=== PATIENT | female | born 1960 | race Caucasian/White ===

== ENCOUNTER 2019-12-28 10:56 | Emergency (ER) | payer BC, SELFPAY ==
--- NOTE | 2019-12-28 10:53 | ECG_ITS ---
APPROVED REPORT Exam: Resting ECG HR:127 bpm ECG Measurements Heart Rate 127 AXES QRSd 70 QRS 51 QT 312 T 60 QTc 453 <Conclusion> Atrial fibrillation with rapid ventricular response Nonspecific ST and T wave abnormality, probably digitalis effect Abnormal ECG Electronically signed by : Henry Tan, 12/31/2019 17:16:58
[2019-12-28 10:57] VITALS: BP 178/111; PULSE 115; RESP 20; TEMP 36.5; O2SAT 100; BMI 36.6
--- NOTE | 2019-12-28 10:58 | XR_ITS ---
PROCEDURE: XR CHEST 2V CLINICAL HISTORY: new onset afib COMPARISON: No exams were available for comparison FINDINGS: The cardiomediastinal silhouette and pulmonary vascularity are within normal limits. Hiatal hernia noted. The lungs are clear without infiltrates, suspicious nodules, or pleural effusions. No acute bony abnormalities. IMPRESSION: Hiatal hernia otherwise negative Dictated by: Carson Lowe MD 12/28/2019 12:13 Electronically signed by Carson Lowe MD in [place] 12/28/2019 12:13
[2019-12-28 11:09] LABS: Basophils % 0.6 % (0.1-2.0); Eosinophils # 0.1 K/mm3 (0.0-0.4); Eosinophils % 2.2 % (0.1-12.0); Hemoglobin 14.8 g/dL (12.2-16.2); Lymphocytes # 1.7 K/mm3 (0.7-4.5); Lymphocytes % 28.9 % (10-50); Mean Corpuscular HGB Conc 33.6 g/dL (31.8-35.4); Mean Corpuscular Hemoglobin 30.5 pg (27.0-31.2); Mean Corpuscular Volume 90.8 fl (81-99); Mean Platelet Volume 8.5 fl (7.4-10.4); Monocytes # 0.3 K/mm3 (0.1-1.0); Monocytes % 5.4 % (1.7-9.3); Neutrophils # 3.7 K/mm3 (1.8-7.8); Neutrophils % 62.9 % (37.0-80.0); Platelet Count 271 K/mm3 (142-424); Red Blood Count 4.85 M/mm3 (4.20-5.40); Red Cell Distribution Width 13.1 % (11.5-17.5); White Blood Count 5.8 K/mm3 (4.8-10.8)
--- NOTE | 2019-12-28 11:10 | HMH.EDGENADL ---
ED Disposition Clinical Impression: Paroxysmal atrial fibrillation Disposition: Home, Self-Care Condition on Discharge: Good Instructions: DI for Atrial Fibrillation Additional Instructions: Stop taking propanolol. Start metoprolol and Eliquis. Follow-up with cardiology in the office in 1 week. Return to the emergency room if symptoms recur. Prescriptions: Apixaban [Eliquis 5mg Tablet] 5 mg PO BID #60 tab Transmission Status: Received by [facility] Metoprolol Succinate [Metoprolol Succinate 50mg Tablet*] 50 mg PO DAILY #30 tab Transmission Status: Received by [facility] Referrals: PCP,No [Primary Care Provider] - - Critical Care Critical Care Time: No Attestation: On 12/28/19, the high probability of a clinically significant, sudden or life threatening deterioration of the following system(s) required my full and direct attention, intervention and personal management. The time I documented below is in addition to time spent performing reported procedures but includes the following listed in this critical care notation. Medical Decision Making - Medical Records Medical records reviewed: Yes: I reviewed the patient's medical records. - Diogenes Inquiry Pt receiving controlled substance: No Vital Signs: 12/28/19 10:57 12/28/19 11:30 12/28/19 12:03 Temperature 97.7 F Temperature Source Oral Pulse Rate [Apical] 115 H 117 H 108 H Respiratory Rate 20 20 Blood Pressure [Right Arm] 178/111 H 159/101 H 159/99 H Blood Pressure Mean [Right Arm] 133 120 119 Blood Pressure Source [Right Arm] Automatic Cuff Automatic Cuff Automatic Cuff Blood Pressure Position [Right Arm] Sitting Sitting Sitting 02 Sat by Pulse Oximetry 100 100 98 Oxygen Delivery Method Room Air Room Air 12/28/19 13:05 Temperature Temperature Source Pulse Rate [Apical] 67 Respiratory Rate Blood Pressure [Right Arm] 156/95 H Blood Pressure Mean [Right Arm] 115 Blood Pressure Source [Right Arm] Automatic Cuff Blood Pressure Position [Right Arm] Sitting 02 Sat by Pulse Oximetry 95 Oxygen Delivery Method Room Air - Lab Data Lab results reviewed: Yes: I reviewed the patient's lab results. Lab Results 12/28/19 11:03: WBC 5.8, RBC 4.85, Hgb 14.8, Hct 44.0, MCV 90.8, MCH 30.5, MCHC 33.6, RDW 13.1, Plt Count 271, MPV 8.5, Neut % (Auto) 62.9, Lymph % (Auto) 28.9, [place] % (Auto) 5.4, Eos % (Auto) 2.2, Baso % (Auto) 0.6, Neut # (Auto) 3.7, Lymph # (Auto) 1.7, [place] # (Auto) 0.3, Eos # (Auto) 0.1, Baso # (Auto) 0.0 12/28/19 11:03: Sodium 140, Potassium 4.0, Chloride 101, Carbon Dioxide 30, Anion Gap 13.0, BUN 10, Creatinine 0.70, Estimated Creat Clear 124, Estimated GFR 86, Est GFR ( Amer) 104, Glucose 75, Calcium 9.6, Troponin I < 0.01 12/28/19 11:03: TSH 1.24, Free T4 Index 2.1 L, Thyroxine (T4) 6.9, T3 Uptake 30 Result diagrams: 12/28/19 11:03 12/28/19 11:03 Orders (Tests/Meds): ORDERS Category Date Time Status Troponin I Q3H Lab 12/28/19 14:00 Ordered Troponin I Q3H Lab 12/28/19 17:00 Ordered - Radiology Data #1 Image(s): Chest Image Reviewed: Yes I reviewed the patient's radiology image, Yes I have reviewed radiologist's interpretation Hiatal hernia, otherwise negative - ECG Data Tracing #1 EKG interpreted by Jelani Larry MD: Rhythm: Tachycardic rhythm which appears to likely be atrial fibrillation with rapid ventricular response, but there are interposed sinus beats as well Rate: 127 [place]: normal Ectopy: none Conduction: normal ST Segment Changes: Nonspecific T Wave Changes: none Q Waves: none No evidence of acute ischemia or injury Tracing #2 EKG interpreted by Jelani Larry MD: Rhythm: sinus arrhythmia/tachycardia Rate: 101 [place]: normal Ectopy: none Conduction: normal ST Segment Changes: none T Wave Changes: none Q Waves: none No evidence of acute ischemia or injury - Physician Consults Physician Consulted: Jame, present in the emergency
--- NOTE | 2019-12-28 11:10 | PC.NURSE ---
notified rad of new orders on pt, spoke with bogdan.
[2019-12-28 11:14] LABS: Chloride 101 mmol/L (98-107)
[2019-12-28 11:15] LABS: Sodium 140 mmol/L (136-145)
[2019-12-28 11:17] LABS: Blood Urea Nitrogen 10 mg/dl (7-17); Creatinine Clearance Estimated 124 mL/min (50-200); Estimated Glomerular Filt Rate 86 ml/min (>60); GFR (African American) 104 ML/MIN (>60)
[2019-12-28 11:18] LABS: Calcium 9.6 mg/dl (8.4-10.2); Carbon Dioxide 30 mmol/L (22.0-30.0); Glucose 75 mg/dl (74-100)
--- NOTE | 2019-12-28 11:18 | PC.NURSE ---
pt to rad
[2019-12-28 11:30] VITALS: BP 159/101; PULSE 117; O2SAT 100
[2019-12-28 11:30] LABS: Troponin I < 0.01 ng/ml (0.00-0.034)
--- NOTE | 2019-12-28 11:32 | PC.NURSE ---
Cardiology called for consult
[2019-12-28 11:59] LABS: Free Thyroxine Index 2.1 ug/dL (5.93-13.13); T4 (Thyroxine) 6.9 ug/dl (5.53-11.0); Triiodothryronine (T3) Uptake 30 % (23.5-40.5)
[2019-12-28 12:03] VITALS: BP 159/99; PULSE 108; RESP 20; O2SAT 98
[2019-12-28 12:13] LABS: Thyroid Stimulating Hormone 1.24 uIU/mL (0.465-4.68)
--- NOTE | 2019-12-28 12:13 | ECG_ITS ---
APPROVED REPORT Exam: Resting ECG HR:101 bpm ECG Measurements Heart Rate 101 AXES SC 206 P 64 QRSd 78 QRS 45 QT 326 T 40 QTc 422 <Conclusion> Sinus tachycardia Late r wave progression Abnormal ECG Electronically signed by : Henry Tan, 12/31/2019 17:16:28
--- NOTE | 2019-12-28 12:33 | CA_ITS ---
APPROVED REPORT EXAM: Comprehensive 2D, Doppler, and color-flow Echocardiogram Taxi Dancer: Renetta Lainez RVT Ht: 5 ft 2 in Wt: 200lbs BSA: 1.91 BP: 159/99 mmHg Indications: a-fib,tachycardia,hx mvp 2D Dimensions LVOT 1.70 cm (M/F) 1.5-2.5 M-Mode Dimensions RVDd 2.89 cm (0.9-2.6) LVDd 3.38 cm (3.5-5.7) LVDs 2.13 cm (3.5-5.7) IVSd 1.06 cm (0.6-1.1) PWd 1.06 cm (0.6-1.1) EF (Teich) 68.20% FS 37.00% EDV (Teich) 46.80 mL ESV (Teich) 14.90 mL LV Diastology E/A Ratio 1.63 Mitral Valve MV A Velocity 73.00 (40-130 cm/s) Left Ventricle Left atrium is mildly enlarged, left ventricle is normal size, there is no concentric left ventricular hypertrophy, visually estimated ejection fraction 55% with no regional wall motion abnormality. Diastolic parameters are within normal range. Right Ventricle Right atrium and right ventricular normal size and contractility. Aortic Valve Aortic valve is minimally thickened and fibrosed, there is no aortic stenosis or aortic insufficiency. Mitral Valve Mitral valve is grossly normal, there is mild mitral regurgitation, there is no mitral valve prolapse. Tricuspid Valve Tricuspid valve is grossly normal, there is mild tricuspid regurgitation, tricuspid regurgitation jet velocity is inadequate for calculation of the right ventricular systolic pressure. Pulmonic Valve Pulmonic valve is poorly visualized. Great Vessels Aortic root is normal size. Pericardium Trivial pericardial effusion noted. Conclusion 1. Mildly enlarged left atrium, normal left ventricular size, visually estimated ejection fraction 55% with no regional wall motion abnormality. Diastolic parameters are within normal range. 2. Mild mitral and tricuspid regurgitation. 3. Trivial pericardial effusion noted. Electronically signed by : Evan Rob, 12/28/2019 19:14:17
--- NOTE | 2019-12-28 12:33 | PC.NURSE ---
nathaniel aguirre at [facility]
--- NOTE | 2019-12-28 12:34 | PC.NURSE ---
notified [facility] lab of echo order, spoke with keith
--- NOTE | 2019-12-28 12:57 | PC.NURSE ---
vascular here for echo
--- NOTE | 2019-12-28 13:02 | PC.NURSE ---
[facility] lab staff at
[2019-12-28 13:05] VITALS: BP 156/95; PULSE 67; O2SAT 95
--- NOTE | 2019-12-28 13:22 | INFXCTL.NOTE ---
Made Favian WILLIAM aware of pt's echo report per Dr Larry request. Favian Castanon states he will come back over to speak with Dr Larry.
--- NOTE | 2019-12-28 13:30 | HMH.CNCARD ---
History of Present Illness Consult date: 12/28/19 Consult reason: atrial fibrillation Chief complaint: SOA, palpitations Additional Medical History:: 1. Hypertension 2. Anxiety 3. History of mitral valve prolapse 4. Family history of heart disease 5. 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 Coworker was asked to check her pulse and noted heart rate around [address] Kilgore confirmed this and patient was sent to the ER for further evaluation. EKG in the ER showed occasional sinus beats with paroxysmal atrial fibrillation with a rapid ventricular response. While in the emergency department the patient spontaneously converted back to sinus rhythm with resolution of symptoms. Initial lab work including CBC BMP and thyroid panel all essentially normal. Cardiology consulted for evaluation recommendations. Troponin noted to be normal. Patient denies any history of cardiac issues other than history of mitral valve prolapse diagnosed in her early 20s. She has been on propranolol since her 20s for history of panic attack/anxiety along with the mitral valve prolapse. Patient does not check her blood pressure on a routine basis. Her relates that she does have periods of apnea at night. Patient is not diabetic nor does she smoke. [facility] History Medical History: Reports:: Valvular Heart Disease (mitral valve prolapse) Denies:: Diabetes Mellitus Type 1, Diabetes Mellitus Type 2 *Have you ever received a pneumonia vaccine?: No *Have you received a flu vaccine this season?: No - *Social History Alcohol Intake: never *Occupational Status:: employed *Travel in the last 8 weeks: None Family Hx:: Coronary Artery Disease, Heart Attack Meds Home Medications Medication Instructions Recorded Confirmed Type Apixaban [Eliquis 5mg Tablet] 5 mg PO BID #60 tab 12/28/19 Rx Metoprolol Succinate [Metoprolol 50 mg PO DAILY #30 tab 12/28/19 Rx Succinate 50mg Tablet*] Propranolol HCl [Inderal 40mg 40 mg PO DAILY 12/28/19 12/28/19 History Tablet] Sertraline HCl [Zoloft 50mg tablet] 50 mg PO DAILY 12/28/19 12/28/19 History Allergies Allergy/AdvReac Type Severity Reaction Status Date / Time No Known Allergies Allergy Verified 12/28/19 11:09 Review of Systems - Review of Systems Review of systems:: pertinent systems reviewed and negative unless documented below - *Cardiovascular Reports fast heart rate - *Respiratory Reports shortness of breath - *Gastrointestinal Denies loose stools, Denies nausea, Denies vomiting - *Genitourinary Denies blood in urine - *Musculoskeletal Denies joint pain, Denies back pain - *Neurologic Denies dizziness, Denies fainting, Denies tingling Exam Vital signs and Labs for Last 24 Hours: Temp Pulse Resp BP Pulse Ox 97.7 F 67 20 156/95 H 95 12/28/19 10:57 12/28/19 13:05 12/28/19 12:03 12/28/19 13:05 12/28/19 13:05 Laboratory Results - last 24 hr 12/28/19 11:03: WBC 5.8, RBC 4.85, Hgb 14.8, Hct 44.0, MCV 90.8, MCH 30.5, MCHC 33.6, RDW 13.1, Plt Count 271, MPV 8.5, Neut % (Auto) 62.9, Lymph % (Auto) 28.9, [place] % (Auto) 5.4, Eos % (Auto) 2.2, Baso % (Auto) 0.6, Neut # (Auto) 3.7, Lymph # (Auto) 1.7, [place] # (Auto) 0.3, Eos # (Auto) 0.1, Baso # (Auto) 0.0 12/28/19 11:03: Sodium 140, Potassium 4.0, Chloride 101, Carbon Dioxide 30, Anion Gap 13.0, BUN 10, Creatinine 0.70, Estimated Creat Clear 124, Estimated GFR 86, Est GFR ( Amer) 104, Glucose 75, Calcium 9.6, Troponin I < 0.01 12/28/19 11:03: TSH 1.24, Free T4 Index 2.1 L, Thyroxine (T4) 6.9, T3 Uptake 30 I & O for Last 24 hours: Intake & Output 12/26/19 12/27/19 12/28/19 12/29/19 11:59 11:59 11:59 11:59 Weight 200 lb - *Routine HEENT Exam Head: Present: normocephali
--- NOTE | 2019-12-28 13:43 | PC.NURSE ---
STEWART Ervin wants to have pt follow up in cardiology office in 1 week.
[2019-12-28 13:52] VITALS: BP 156/95; PULSE 67; RESP 20; TEMP 36.5; O2SAT 95
== END 2019-12-28 13:54 | disposition home or self-care (01) ==
PROVIDERS: Emergency Provider Emergency Medicine
DX: I48.0 Paroxysmal atrial fibrillation (principal); I34.0 Nonrheumatic mitral (valve) insufficiency; I10 Essential (primary) hypertension; F41.9 Anxiety disorder, unspecified; Z79.899 Other long term (current) drug therapy
CPT/HCPCS: 71046; 80048; 84436; 84443; 84479; 84484; 85025; 93005; 93306; 99284

== ENCOUNTER → 2020-01-14 07:26 | Outpatient (CLI) | payer BC, SELFPAY ==
--- NOTE | 2020-01-14 | CA_ITS ---
APPROVED REPORT Exam: Pharmacologic Technologist: Jolynn Hicks, Ht: 5 ft 2 in Wt: 200 lbs BSA: 1.91 m2 HR: 53 bpm BP: 174/77 mmHg Rhythm: SINUS MARINA Medical History Medical History: HTN Medications: Metoprolol,,,,, Zoloft,,,,, ClIQUIS,,,,, CyclobenzapINE,,,,, Allergies: NKA Cardiac Risk Factors: HTN, FHX of CAD Stress Test Details Test: LEXISCAN HR Resting HR: 60 bpm Max Heart Rate (APMHR): 161 bpm Max HR Achieved: 99 bpm Target HR (85% APMHR): 136 bpm % of APMHR: 61 Recovery HR: 87 bpm BP Resting BP: 174.0/77.0 mmHg Max BP: 174.0/77.0 mmHg Recovery BP: 136.0/83.0 mmHg ECG Resting ECG: SINUS MARINA Clinical Exercise duration: 04:00 min Highest Stage Achieved: Stress ECG Conclusion LEXISCAN PORTION COMPLETED. PATIENT C/O WEIRD FEELING DURING PEAK INFUSION. NO CP. NO SOA. WEIRD FEELING RESOLVED IN RECOVERY. NO ECTOPY. LESS THAN 1.5MM ST DEPRESSION. IMAGES TO FOLLOW Electronically signed by : Evan Rob, 01/14/2020 13:31:49
--- NOTE | 2020-01-14 07:26 | NM_ITS ---
APPROVED REPORT Exam: Nuclear Stress Test Indication: palpitations..fatigue..a-fib Patient Location: Outpatient Stress Tech: Candelariaheath Hicks [facility] Tech:Michela Bowers ERICMansoor RT(R)(N) Ht: 5 ft 2 in Wt: 200 lbs Bra Size: 40dd HR: 53 bpm BP: 174/77 mmHg BSA: 1.91 m2 BMI: 36.5 History: palpitations..fatigue..a-fib Procedure: Patient received a 0.4 mg of intravenous Lexiscan, resting heart rate 53 bpm, resting blood pressure 174/77 mmHg, with Lexiscan maximum heart rate achived was 87 bpm which is 85 % of the maximum predicted heart rate and blood pressure was 136/83 mmHg. With Lexiscan, patient denied any complaint of chest pain. Electrocardiogram Resting electrocardiogram showed sinus rhythm nonspecific ST-T changes, with Lexiscan there is less than 1.[address] segment depression noted from the baseline EKG. The EKG portion of the Lexiscan Myoview is nondiagnostic. Cardiac Stress and Resting SPECT Images: Cardiac Stress and Resting SPECT images were obtained using technetium 99m Myoview 32.2 mCi stress and 10.30 mCi at rest. Gated SPECT with analysis of segmental wall motion and calculation of the ejection fraction also done. Cardiac stress and resting SPECT images show uniform myocardial activity without segmental perfusion abnormality, computer derived ejection fraction is over 65% with no regional wall motion abnormality, right ventricle is normal size and contractility. Conclusion: 1. The EKG portion of the Lexiscan Myoview is nondiagnostic. 2. No scintigraphic evidence of reversible ischemia seen, computer derived ejection fraction is over 65% with no regional wall motion abnormality, right ventricle is normal size and contractility. 3. Normal Lexiscan Myoview study. Electronically signed by : Evan Rob, 01/14/2020 13:33:33
--- NOTE | 2020-01-14 10:46 | HMH.ITSHM ---
Current Home Medications as stated by this patient Samra Richmond or community service representative. [] metoprolol zoloft cliquis\cyclobenzaprine
== END ==
PROVIDERS: PCP Family Medicine; Visit Provider Physician Assistant
DX: I48.0 Paroxysmal atrial fibrillation (principal); I10 Essential (primary) hypertension; R06.02 Shortness of breath; R00.2 Palpitations
CPT/HCPCS: 78452; 93017; A9502; J2785

== ENCOUNTER → 2020-01-18 15:13 | Outpatient (CLI) | payer BC, SELFPAY | PROVIDERS: PCP Family Medicine; Visit Provider Physician Assistant | DX: G47.33 Obstructive sleep apnea (adult) (pediatric) (principal); I48.0 Paroxysmal atrial fibrillation; I10 Essential (primary) hypertension | CPT/HCPCS: G0399 ==

== ENCOUNTER → 2020-03-22 08:44 | Outpatient (CLI) | payer BC, SELFPAY | PROVIDERS: PCP Family Medicine; Visit Provider Specialist | DX: G47.33 Obstructive sleep apnea (adult) (pediatric) (principal) | CPT/HCPCS: 94762 ==

== ENCOUNTER → 2020-04-13 08:58 | Outpatient (CLI) | payer BC, SELFPAY ==
--- NOTE | 2020-04-13 09:02 | MM_ITS ---
PROCEDURE: MM DIG SCREENING MAMM BI W/CAD Digital Breast Tomosynthesis Included CLINICAL INDICATION: SCREENING There is no personal or family history of breast cancer. COMPARISON: [facility] DIGITAL MAMM-SCREEN BILATERAL from 07/15/2011 [facility] DIG MAMM-SCREEN [place] from 11/25/2012 [facility] DIG MAMM-SCREEN [place] from 11/08/2014 TECHNIQUE: Standard MLO and CC views were obtained along with shellie images and CAD. FINDINGS: Breasts are composed primarily of fat with scattered fibroglandular densities throughout each breast. There is faint arterial calcification left breast. There are 2 tiny benign-appearing nodular densities right breast, 1 near the axillary tail the other 12 o'clock position above the nipple. These have been seen previously and are stable. There is no suspicious lesion and no suspicious microcalcifications. There are no CAD markings. IMPRESSION: Fibrofatty parenchyma with no suspicious lesions seen BI-RAD Category: 2 Benign Finding(s) FOLLOW-UP: 1YR 1 Year Follow-up (A letter has been sent to the patient regarding results of the study.) Dictated by: Dr. Riley Bess MD 04/14/2020 10:29 Dr. Riley Bess MD in [facility] 04/14/2020 10:29
== END ==
PROVIDERS: PCP Family Medicine; Visit Provider Family Medicine
DX: Z12.31 Encounter for screening mammogram for malignant neoplasm of breast (principal)
CPT/HCPCS: 77063; 77067

== ENCOUNTER → 2020-07-05 07:36 | Outpatient (CLI) | payer BC, SELFPAY ==
[2020-07-05 08:05] LABS: Basophils % 0.5 % (0.1-2.0); Eosinophils # 0.1 K/mm3 (0.0-0.4); Eosinophils % 1.8 % (0.1-12.0); Hemoglobin 13.8 g/dL (12.2-16.2); Lymphocytes # 1.2 K/mm3 (0.7-4.5); Lymphocytes % 25.2 % (10-50); Mean Corpuscular HGB Conc 32.9 g/dL (31.8-35.4); Mean Corpuscular Hemoglobin 29.4 pg (27.0-31.2); Mean Corpuscular Volume 89.3 fl (81-99); Mean Platelet Volume 8.3 fl (7.4-10.4); Monocytes # 0.4 K/mm3 (0.1-1.0); Monocytes % 7.2 % (1.7-9.3); Neutrophils # 3.2 K/mm3 (1.8-7.8); Neutrophils % 65.3 % (37.0-80.0); Platelet Count 249 K/mm3 (142-424); Red Blood Count 4.71 M/mm3 (4.20-5.40); Red Cell Distribution Width 13.7 % (11.5-17.5); White Blood Count 4.9 K/mm3 (4.8-10.8)
[2020-07-05 08:19] LABS: Alanine Aminotransferase 28 U/L (12-78); Albumin/Globulin Ratio 1.4 (1.1-1.8); Alkaline Phosphatase 84 U/L (38-126); Anion Gap 10.3 mEq/L (5-15); Aspartate Amino Transferase 32 U/L (14-36); Bilirubin,Direct 0.3 mg/dl (0.0-0.4); Bilirubin,Indirect 0.2 mg/dL (0.0-0.9); Bilirubin,Total 0.5 mg/dl (0.2-1.3); Bilirubin,Unconjugated 0.2 mg/dL (0.0-1.1); Blood Urea Nitrogen 13 mg/dl (7-17); Calcium 9.8 mg/dl (8.4-10.2); Carbon Dioxide 30 mmol/L (22.0-30.0); Chloride 101 mmol/L (98-107); Chol/HDL Ratio 4.4 (1-3.5); Cholesterol 234 mg/dl (140-200); Estimated Glomerular Filt Rate 73 ml/min (>60); GFR (African American) 89 ML/MIN (>60); Globulin 2.8 g/dL (1.3-3.2); Glucose 91 mg/dl (74-100); HDL Cholesterol 53 mg/dl (40-60); Potassium 4.3 mmoL/L (3.5-5.1); Sodium 137 mmol/L (136-145); Total Protein,Serum 6.8 g/dl (6.3-8.2); Triglycerides 182 mg/dl (30-150); VLDL Cholesterol 36 mg/dL (0-40)
[2020-07-05 08:29] LABS: Direct LDL Cholesterol 147.42 mg/dL (100-129)
[2020-07-05 08:31] LABS: NT Pro Brain Natriuretic Pep. 245 pg/mL (0-125)
[2020-07-05 08:35] LABS: Free T4 (Free Thyroxine) 0.86 ng/dl (0.78-2.19)
[2020-07-05 08:52] LABS: Troponin I < 0.01 ng/ml (0.00-0.034)
== END ==
PROVIDERS: Visit Provider Physician Assistant
DX: R06.00 Dyspnea, unspecified (principal); I48.0 Paroxysmal atrial fibrillation; R60.0 Localized edema; I10 Essential (primary) hypertension; G47.33 Obstructive sleep apnea (adult) (pediatric)
CPT/HCPCS: 36415; 80053; 80061; 80076; 83880; 84439; 84443; 84484; 85025

== ENCOUNTER → 2020-07-12 13:29 | Outpatient (CLI) | payer BC, SELFPAY ==
--- NOTE | 2020-07-12 13:29 | CT_ITS ---
PROCEDURE: CT CHEST WO/W CON CLINCAL INDICATION: MARTINEZ, edema, KRISSY, pe protocol Leg swelling, bilat x 2-3 months COMPARISON: No exams were available for comparison TECHNIQUE: IV Contrast: 75ml Isovue 370 Axial images obtained with sagittal and coronal reformats. All CT scans at the facility use one or more dose reduction, viz: automated exposure control, ma/kV adjustment per patient size (including targeted exams where dose is matched to indication, i.e. head), or iterative reconstruction technique. FINDINGS: HEART AND MEDIASTINAL STRUCTURES: No evidence of pulmonary embolus, aortic aneurysm, or aortic dissection. LUNGS AND PLEURAL SPACES: Minimal biapical scarring. There are a few nonspecific small subpleural in parenchymal nodular opacities. There is minimal ground-glass attenuation in the right lung base medially and right lung base posteriorly. The largest subpleural nodule is in the right upper lobe anteriorly image 44 at 4 mm. There is a 3 mm noncalcified nodule in the right lower lobe laterally image 44 series 3. Calcified granuloma is present within the left lower lobe. Mild atelectatic or fibrotic changes are present in the left lung base medially and posteriorly adjacent to the hiatal hernia BONY STRUCTURES: No acute bony abnormalities apparent. UPPER ABDOMEN: There is a moderate-sized hernia ADDITIONAL FINDINGS: No other significant abnormalities. IMPRESSION: 1. No acute finding. No evidence of pulmonary embolus. 2. Moderate-sized hiatal hernia. 3. Scattered small sub pleural and parenchymal opacities. These are nonspecific. Consider 6-12 month follow-up to confirm stability. Dictated by: Carson Lowe MD 07/13/2020 07:21 Carson Lowe MD in [facility] 07/13/2020 07:21
--- NOTE | 2020-07-12 13:57 | CA_ITS ---
APPROVED REPORT EXAM: Comprehensive 2D, Doppler, and color-flow Echocardiogram Track Leader: Renetta Lainez RVT Ht: 5 ft 3 in Wt: 219lbs BSA: 2.01 BP: 167/56 mmHg Indications: EDEMA,CP,HTN,A-FIB,KRISSY,GERD,MARTINEZ,PALPS 2D Dimensions LVOT 1.59 cm (M/F) 1.5-2.5 M-Mode Dimensions RVDd 2.79 cm (0.9-2.6) LA Diam 3.84 cm (1.9-4.0) LVDd 4.18 cm (3.5-5.7) Ao Diam 2.58 cm (2.0-3.7) LVDs 2.22 cm (3.5-5.7) IVSd 1.04 cm (0.6-1.1) PWd 0.97 cm (0.6-1.1) EF (Teich) 78.60% FS 46.90% EDV (Teich) 77.70 mL ESV (Teich) 16.60 mL LV Diastology E Decel Time 263.00 (160-240 msec) E/A Ratio 1.3 MED E' 5.50 (< 7 cm/sec) E'/MED E' Ratio 19.07 (>14) LAT E' 11.80 (<10 cm/sec) E/LAT E' Ratio 8.89 (>14) Mitral Valve MV E Max Filiberto. 105.00 (40-130 cm/s) MV A Velocity 83.00 (40-130 cm/s) E/A Ratio 1.27 MV Decel. Time 263.00 (160-240 ms) MV PHT 77.00 ms Pulmonary Valve PV Peak Velocity 88.00 (50-150 cm/s) Tricuspid Valve TR P. Velocity 165.00 cm/s RAP Estimate 10.00 mmHg RVSP 20.80 mmHg Left Ventricle Left atrium is mildly enlarged, left ventricle is normal size, mild concentric left ventricular hypertrophy, visually estimated ejection fraction 55% with no regional wall motion abnormality, diastolic parameters are inconclusive. Right Ventricle Right atrium and right ventricle mildly enlarged with normal contractility. Aortic Valve Aortic valve is minimally thickened and fibrosed, there is no aortic stenosis or aortic insufficiency. Mitral Valve Mitral valve is grossly normal, there is trace mitral regurgitation. Tricuspid Valve Tricuspid valve grossly normal, there is trace tricuspid regurgitation, tricuspid regurgitation jet velocity is inadequate for calculation of the right ventricular systolic pressure. Pulmonic Valve Pulmonic valve is poorly visualized. Great Vessels Aortic root is normal size. Pericardium No significant pericardial effusion noted. Conclusion 1. Biatrial enlargement, normal left ventricular size, mild concentric left ventricular hypertrophy, visually estimated ejection fraction 55% with no regional wall motion abnormality, diastolic parameters are inconclusive. 2. Mildly enlarged right ventricle with normal contractility. 3. Trace mitral and tricuspid regurgitation. 4. No significant pericardial effusion noted. Electronically signed by : Evan Rob, 07/12/2020 18:06:25
== END ==
PROVIDERS: PCP Family Medicine; Visit Provider Physician Assistant
DX: R06.00 Dyspnea, unspecified (principal); I48.0 Paroxysmal atrial fibrillation; R60.0 Localized edema; I10 Essential (primary) hypertension; G47.33 Obstructive sleep apnea (adult) (pediatric)
CPT/HCPCS: 71270; 93306; Q9967

== ENCOUNTER → 2020-11-14 14:10 | Outpatient (CLI) | payer OTHER, SELFPAY ==
[2020-11-14 14:26] LABS: Reticulocyte % (Auto) 2.6 % (0.9-3.2)
[2020-11-14 14:51] LABS: Alanine Aminotransferase 23 U/L (12-78); Albumin Level 3.6 g/dl (3.5-5.0); Albumin/Globulin Ratio 1.3 (1.1-1.8); Alkaline Phosphatase 88 U/L (38-126); Anion Gap 5.6 mEq/L (5-15); Aspartate Amino Transferase 29 U/L (14-36); Bilirubin,Total 0.5 mg/dl (0.2-1.3); Blood Urea Nitrogen 10 mg/dl (7-17); Calcium 8.4 mg/dl (8.4-10.2); Carbon Dioxide 27 mmol/L (22.0-30.0); Chloride 109 mmol/L (98-107); Estimated Glomerular Filt Rate 85 ml/min (>60); GFR (African American) 103 ML/MIN (>60); Globulin 2.7 g/dL (1.3-3.2); Glucose 67 mg/dl (74-100); Phosphorous 2.9 mg/dl (2.5-4.5); Potassium 4.6 mmoL/L (3.5-5.1); Sodium 137 mmol/L (136-145); Total Protein,Serum 6.3 g/dl (6.3-8.2)
[2020-11-14 15:07] LABS: Intact Parathyroid Hormone 96.5 pg/mL (7.5-53.5); NT Pro Brain Natriuretic Pep. 540 pg/mL (0-125)
[2020-11-14 15:25] LABS: Erythrocyte Sedimentation Rate 27 mm/hr (0-30)
[2020-11-14 15:25] LABS: Thyroid Stimulating Hormone 1.48 uIU/mL (0.465-4.68)
[2020-11-14 15:29] LABS: Ferritin 5.42 ng/ml (11.1-264)
[2020-11-14 16:02] LABS: 25-OH Vitamin D, Total < 12.8 ng/mL (30-100)
[2020-11-14 16:03] LABS: Folate 6.87 ng/mL
[2020-11-14 19:58] LABS: Vitamin B12 216 pg/mL (239-931)
[2020-11-14 22:39] LABS: Iron 28 ug/dL (37-170)
[2020-11-14 22:48] LABS: Total Iron Binding Capacity 429 ug/dL (265-497)
[2020-11-16 08:15] LABS: Transferrin 337 mg/dL (192-364)
== END ==
PROVIDERS: Visit Provider Family Medicine
DX: R06.02 Shortness of breath (principal); R53.83 Other fatigue; D64.9 Anemia, unspecified; N28.9 Disorder of kidney and ureter, unspecified; R60.9 Edema, unspecified
CPT/HCPCS: 80053; 82306; 82607; 82728; 82746; 83540; 83550; 83880; 83970; 84100; 84443; 84466; 85044; 85651

== ENCOUNTER → 2020-11-22 13:32 | Outpatient (CLI) | payer OTHER, SELFPAY | PROVIDERS: Visit Provider Internal Medicine Gastroenterology | DX: Z01.812 Encounter for preprocedural laboratory examination (principal); Z20.822 Contact with and (suspected) exposure to COVID-19; Z13.810 Encounter for screening for upper gastrointestinal disorder; Z12.11 Encounter for screening for malignant neoplasm of colon | CPT/HCPCS: U0003 ==

== ENCOUNTER 2020-11-24 09:15 | Day surgery (SDC) | payer OTHER, SELFPAY ==
[2020-11-16 09:15] VITALS: BMI 38.9
[2020-11-24] VITALS (8 sets, daily range): BP systolic 79–158; BP diastolic 54–76; PULSE 63–83; RESP 18–20; TEMP 36.1–36.3; O2SAT 95–99
--- NOTE | 2020-11-24 10:16 | P.PCN_ITS ---
[facility] Procedure Note Procedure Note:: Upper Endoscopy Procedure Report: Esophagogastroduodenoscopy with cold biopsies Endoscopost: Melchor Zuniga II, MD Referring Physician: Yariel Lee MD Date of Procedure: November 24, 2020 Equipment: Olympus GIF 190 standard upper endoscope Sedation: MAC sedation Indications: Mrs. Richmond is a 60-year-old female with iron deficiency anemia who is here for diagnostic EGD/colonoscopy. She appeared to have normal hemoglobin and hematocrit in June 2020 (). The patient reports no melanotic stools or hematochezia. She does take Eliquis. She takes ibuprofen once or twice a month. The patient reports chronic heartburn and reflux for which she takes [id number] antacids (Rolaids and rarely omeprazole). She does report having a hiatal hernia. She had prior cholecystectomy and will have episodic crampy abdominal pain with diarrhea 2 or 3 times a month. This is her first EGD. She reports no dysphagia. She has had no unintentional weight loss. Procedure: Prior to the procedure, a history and physical exam was performed, and patient's medications and allergies were reviewed. The risks, benefits and alternatives of the sedation and procedure were discussed with the patient. All questions were answered and informed consent was obtained. The patient was brought to the procedure room. Patient identification and proposed procedure were verified by the physician and the nurse. The patient was placed in a left lateral decubitus position and the scope was passed under direct vision. Throughout the procedure, the patient's blood pressure, pulse, and oxygen saturations were monitored continuously. The upper GI endoscopy was accomplished without difficulty. The patient tolerated the procedure well. Findings: The scope was passed directly into the upper esophagus and advanced to the third portion of the duodenum. The post bulbar duodenum and duodenal bulb were normal with normal mucosa and conniventes. Cold biopsies were taken from the post bulbar duodenum and bulb to rule out celiac disease. The scope was withdrawn through a normal duodenal bulb and pylorus into the stomach. There was moderate linear reactive gastropathy of the antrum and body with bile reflux. There was also upon retroflexion a large hiatal hernia/paraesophageal hernia. The diaphragmatic hiatus was at 42 cm and the top of the gastric folds/Z-line was at 33 cm. This was a 9 cm hiatal hernia. There were associated linear Yunior's erosions. Biopsies were taken from the antrum. The scope was then withdrawn into the esophagus. There was no evidence of reflux esophagitis or Domingo's. There appeared to be a very faint distal esophageal varices. There was also presbyesophagus/mild dysmotility of the esophagus. The remainder of the esophageal mucosa was normal. Impression: 1. Large hiatal hernia (paraesophageal hernia)?9 to 10 cm with associated linear Yunior's erosions 2. Faint esophageal varices 3. Presbyesophagus 4. Bile reflux with linear reactive gastropathy Plan: I do feel that her iron deficiency may indeed be related to the Yunior's erosions and Eliquis combination. I will follow-up the biopsies. I will proceed with diagnostic colonoscopy. We will discuss treatment options including parenteral iron replacement. I would like to obtain recent hemoglobin and iron studies.
--- NOTE | 2020-11-24 10:33 | P.PCN_ITS ---
[facility] Procedure Note Procedure Note:: Colonoscopy Procedure Report: Colonoscopy Endoscopist: Melchor Zuniga II, MD Referring physician: Yariel Lee MD Date of Procedure: November 24, 2020 Equipment: Olympus 190 variable stiffness pediatric colonoscope Sedation: MAC sedation Indication: Mrs. Richmond is a 60-year-old female who is here for diagnostic colonoscopy secondary to iron deficiency anemia. The patient does take Eliquis anticoagulation. She reports no abdominal pain, weight loss, change in her bowel habits or rectal bleeding. She reports no family history of colon cancer. This is her first colonoscopy. Her upper endoscopy did show a large hiatal hernia (paraesophageal hernia) with Yunior's erosions. Procedure: Prior to the procedure, a history and physical exam was performed, and patient's medications and allergies were reviewed. The risks, benefits and alternatives of the sedation and procedure were discussed with the patient. All questions were answered and informed consent was obtained. The patient was brought to the procedure room. Patient identification and proposed procedure were verified by the physician and the nurse. The patient was placed in a left lateral decubitus position and the scope was passed under direct vision. Throughout the procedure, the patient's blood pressure, pulse, and oxygen saturations were monitored continuously. The colonoscopy was accomplished without difficulty. The patient tolerated the procedure well. Findings: On digital rectal examination there was normal rectal tone. There were no external hemorrhoids. The colonoscope was introduced through the anal canal to the rectum and advanced to the cecum. The ileocecal valve and appendiceal orifice were identified. The scope was advanced a short distance into the ileum which appeared grossly normal. The scope was then withdrawn into the colon. The cecum, ascending, transverse, descending, sigmoid and rectum were grossly normal. There were no mucosal abnormalities identified. Upon retroflexion within the rectum there were grade 1 internal hemorrhoids.The preparation was excellent throughout with [place] Preparation Score of 9. The cecal time was 10 minutes. Impression: 1. Normal colonoscopy with intubation of the terminal ileum Plan: I do suspect that the patient's iron deficiency anemia is secondary to the anticoagulation and linear Yunior's erosions with large hiatal hernia/paraesophageal hernia. I would recommend parenteral iron replacement. I would recommend fecal Hemoccult testing. If she is fecal Hemoccult positive, I would consider PillCam/video capsule enteroscopy. Based upon her symptomatology, size and risk of large paraesophageal hernia and risk of recurrent iron deficiency, I would consider robotic or laparoscopic hiatal hernia repair if she is Hemoccult negative.
[2020-11-24 12:07] LABS: Basophils % 0.3 % (0.1-2.0); Eosinophils % 0.1 % (0.1-12.0); Hematocrit 31.4 % (37.0-47.0); Hemoglobin 9.7 g/dL (12.2-16.2); Lymphocytes # 0.6 K/mm3 (0.7-4.5); Lymphocytes % 8.8 % (10-50); Mean Corpuscular HGB Conc 30.9 g/dL (31.8-35.4); Mean Corpuscular Hemoglobin 24.9 pg (27.0-31.2); Mean Corpuscular Volume 80.5 fl (81-99); Mean Platelet Volume 9.2 fl (7.4-10.4); Monocytes # 0.3 K/mm3 (0.1-1.0); Neutrophils # 6.3 K/mm3 (1.8-7.8); Neutrophils % 86.9 % (37.0-80.0); Platelet Count 277 K/mm3 (142-424); Red Cell Distribution Width 13.9 % (11.5-17.5); White Blood Count 7.2 K/mm3 (4.8-10.8)
[2020-11-24 12:10] LABS: MANUAL DIFFERENTIAL MANUAL DIFFERENTIAL (MANUAL DIFF)
[2020-11-24 12:18] LABS: Chloride 111 mmol/L (98-107); Sodium 143 mmol/L (136-145)
[2020-11-24 12:19] LABS: Potassium 4.4 mmoL/L (3.5-5.1)
[2020-11-24 12:20] LABS: Hypochromasia 2+; Lymphocytes % 15 % (10-50); Monocytes % 3 % (2-9); Neutrophils % 82 % (42-76); Platelet Estimate Normal; Total Cells Counted 100
[2020-11-24 12:21] LABS: Alanine Aminotransferase 22 U/L (12-78); Albumin/Globulin Ratio 1.4 (1.1-1.8); Alkaline Phosphatase 106 U/L (38-126); Anion Gap 12.4 mEq/L (5-15); Aspartate Amino Transferase 27 U/L (14-36); Bilirubin,Total 0.3 mg/dl (0.2-1.3); Blood Urea Nitrogen 9 mg/dl (7-17); Carbon Dioxide 24 mmol/L (22.0-30.0); Creatinine Clearance Estimated 118 mL/min (50-200); Estimated Glomerular Filt Rate 73 ml/min (>60); GFR (African American) 89 ML/MIN (>60); Globulin 2.8 g/dL (1.3-3.2); Total Protein,Serum 6.8 g/dl (6.3-8.2)
[2020-11-24 12:22] LABS: Calcium 9.1 mg/dl (8.4-10.2); Glucose 96 mg/dl (74-100)
[2020-11-24 12:58] LABS: Ferritin 6.46 ng/ml (11.1-264)
[2020-11-24 13:14] LABS: Iron 21 ug/dL (37-170)
[2020-11-24 13:23] LABS: Total Iron Binding Capacity 450 ug/dL (265-497)
[2020-11-29 00:07] LABS: ALT (SGPT) P5P 22 IU/L (0-40); AST (SGOT) P5P 23 IU/L (0-40); Alpha 2-Macroglobulins, Qn 145 mg/dL (110-276); Apolipoprotein A-1 119 mg/dL (116-209); Bilirubin, Total 0.2 mg/dL (0.0-1.2); Cholesterol, Total 192 mg/dL (100-199); Fibrosis Score 0.05 (0.00-0.21); GGT 11 IU/L (0-60); Glucose 97 mg/dL (65-99); Haptoglobin 197 mg/dL (33-346); Steatosis Score 0.53 (0.00-0.30); Triglycerides 66 mg/dL (0-149)
== END 2020-11-24 12:10 | disposition home or self-care (01) ==
PROVIDERS: PCP Family Medicine; Visit Provider Internal Medicine Gastroenterology
PROC: 0DJ08ZZ Inspection of Upper Intestinal Tract, Via Natural or Artificial Opening Endoscopic (ICD-10-PCS; CPT 43235; principal; 2020-11-24 10:00)
DX: D50.9 Iron deficiency anemia, unspecified (principal); Z79.01 Long term (current) use of anticoagulants; K21.9 Gastro-esophageal reflux disease without esophagitis; K44.9 Diaphragmatic hernia without obstruction or gangrene; K22.10 Ulcer of esophagus without bleeding; I85.00 Esophageal varices without bleeding; K22.8 Other specified diseases of esophagus; K31.9 Disease of stomach and duodenum, unspecified; F41.9 Anxiety disorder, unspecified; I10 Essential (primary) hypertension; I48.0 Paroxysmal atrial fibrillation; Z79.899 Other long term (current) drug therapy
CPT/HCPCS: 45378; 43239; 36415; 80053; 82728; 83540; 83550; 85007; 85025

== ENCOUNTER → 2020-11-26 08:08 | Outpatient (CLI) | payer OTHER, SELFPAY ==
[2020-11-28 08:59] LABS: Occult Blood,Stool Negative (Negative)
== END ==
LOC: LAB 11-28 08:09 → LAB.DROPOF 11-29 09:42
PROVIDERS: Visit Provider Internal Medicine Gastroenterology
DX: D64.9 Anemia, unspecified (principal)
CPT/HCPCS: 82272; G0328

== ENCOUNTER → 2020-11-27 08:06 | Outpatient (CLI) | payer OTHER, SELFPAY ==
[2020-11-28 08:58] LABS: Occult Blood,Stool Negative (Negative)
== END ==
LOC: LAB 11-28 08:07 → LAB.DROPOF 11-29 09:42
PROVIDERS: Visit Provider Internal Medicine Gastroenterology
DX: D64.9 Anemia, unspecified (principal)
CPT/HCPCS: 82272; G0328

== ENCOUNTER → 2020-11-28 08:00 | Outpatient (CLI) | payer OTHER, SELFPAY ==
[2020-11-28 08:22] LABS: Basophils % 0.3 % (0.1-2.0); Eosinophils # 0.1 K/mm3 (0.0-0.4); Eosinophils % 1.8 % (0.1-12.0); Hematocrit 30.7 % (37.0-47.0); Hemoglobin 9.7 g/dL (12.2-16.2); Lymphocytes # 1.3 K/mm3 (0.7-4.5); Lymphocytes % 22.6 % (10-50); Mean Corpuscular HGB Conc 31.6 g/dL (31.8-35.4); Mean Corpuscular Hemoglobin 25.1 pg (27.0-31.2); Mean Corpuscular Volume 79.3 fl (81-99); Mean Platelet Volume 8.9 fl (7.4-10.4); Monocytes # 0.4 K/mm3 (0.1-1.0); Monocytes % 7.1 % (1.7-9.3); Neutrophils # 3.8 K/mm3 (1.8-7.8); Neutrophils % 68.2 % (37.0-80.0); Platelet Count 256 K/mm3 (142-424); Red Blood Count 3.87 M/mm3 (4.20-5.40); Red Cell Distribution Width 14.1 % (11.5-17.5); White Blood Count 5.6 K/mm3 (4.8-10.8)
[2020-11-28 10:05] LABS: Chloride 105 mmol/L (98-107); Potassium 4.2 mmoL/L (3.5-5.1); Sodium 137 mmol/L (136-145)
[2020-11-28 10:07] LABS: Alanine Aminotransferase 18 U/L (12-78); Alkaline Phosphatase 98 U/L (38-126); Anion Gap 9.2 mEq/L (5-15); Aspartate Amino Transferase 22 U/L (14-36); Bilirubin,Total 0.3 mg/dl (0.2-1.3); Blood Urea Nitrogen 9 mg/dl (7-17); Carbon Dioxide 27 mmol/L (22.0-30.0); Estimated Glomerular Filt Rate 85 ml/min (>60); GFR (African American) 103 ML/MIN (>60); Iron 27 ug/dL (37-170)
[2020-11-28 10:08] LABS: Albumin Level 3.7 g/dl (3.5-5.0); Albumin/Globulin Ratio 1.4 (1.1-1.8); Calcium 8.8 mg/dl (8.4-10.2); Globulin 2.7 g/dL (1.3-3.2); Glucose 88 mg/dl (74-100); Total Protein,Serum 6.4 g/dl (6.3-8.2)
[2020-11-28 10:17] LABS: Total Iron Binding Capacity 437 ug/dL (265-497)
[2020-11-28 10:43] LABS: Ferritin 5.31 ng/ml (11.1-264)
[2020-12-01 00:07] LABS: ALT (SGPT) P5P 19 IU/L (0-40); AST (SGOT) P5P 21 IU/L (0-40); Alpha 2-Macroglobulins, Qn 150 mg/dL (110-276); Apolipoprotein A-1 129 mg/dL (116-209); Bilirubin, Total 0.2 mg/dL (0.0-1.2); Cholesterol, Total 201 mg/dL (100-199); Fibrosis Score 0.05 (0.00-0.21); GGT 12 IU/L (0-60); Glucose 85 mg/dL (65-99); Haptoglobin 217 mg/dL (33-346); Steatosis Score 0.55 (0.00-0.30); Triglycerides 118 mg/dL (0-149)
== END ==
PROVIDERS: Visit Provider Internal Medicine Gastroenterology
DX: D64.9 Anemia, unspecified (principal)
CPT/HCPCS: 36415; 80053; 82728; 83540; 83550; 85025

== ENCOUNTER → 2020-11-29 09:54 | Outpatient (CLI) | payer OTHER, SELFPAY ==
[2020-11-30 16:24] LABS: Occult Blood,Stool Negative (Negative)
== END ==
PROVIDERS: Visit Provider Internal Medicine Gastroenterology
DX: D64.9 Anemia, unspecified (principal)
CPT/HCPCS: 82272; G0328

== ENCOUNTER 2020-11-30 08:32 | Outpatient (CLI) | payer OTHER, SELFPAY ==
[2020-11-30 09:00] VITALS: BP 134/71; PULSE 66; RESP 18; O2SAT 96
[2020-11-30 09:35] VITALS: BP 125/69; PULSE 60; RESP 18
== END 2020-11-30 09:45 | disposition home or self-care (01) ==
LOC: INF 08:32
PROVIDERS: Visit Provider Internal Medicine Gastroenterology
DX: D50.9 Iron deficiency anemia, unspecified (principal); D64.9 Anemia, unspecified
CPT/HCPCS: 96365; J1439

== ENCOUNTER 2020-12-08 08:37 | Outpatient (CLI) | payer OTHER, SELFPAY ==
[2020-12-08 09:10] VITALS: BP 130/74; PULSE 68; RESP 18; O2SAT 98
[2020-12-08 09:46] VITALS: BP 136/76; PULSE 64; RESP 18
== END 2020-12-08 09:46 | disposition home or self-care (01) ==
LOC: INF 08:39
PROVIDERS: Visit Provider Internal Medicine Gastroenterology
DX: D64.9 Anemia, unspecified (principal); D50.9 Iron deficiency anemia, unspecified
CPT/HCPCS: 96365; J1439

== ENCOUNTER → 2021-04-22 08:49 | Outpatient (CLI) | payer OTHER, SELFPAY ==
[2021-04-22 09:53] LABS: Influenza A, PCR Not Detected (NotDetected); Influenza B, PCR Not Detected (NotDetected)
[2021-04-22 11:03] LABS: Coronavirus 19, PCR Detected (NotDetected)
== END ==
PROVIDERS: PCP Family Medicine; Visit Provider Family Medicine
DX: Z20.822 Contact with and (suspected) exposure to COVID-19 (principal); U07.1 COVID-19
CPT/HCPCS: C9803; U0003; U0005

== ENCOUNTER 2021-04-25 11:30 | Outpatient (CLI) | payer OTHER, SELFPAY ==
[2021-04-25] VITALS (7 sets, daily range): BP systolic 115–157; BP diastolic 73–96; PULSE 45–51; RESP 14–18; TEMP 36.7; O2SAT 98–100
== END 2021-04-25 13:52 | disposition home or self-care (01) ==
LOC: COVID.OUT 11:31
PROVIDERS: PCP Family Medicine; Visit Provider Family Medicine
DX: U07.1 COVID-19 (principal); Z23 Encounter for immunization
CPT/HCPCS: 96365

== ENCOUNTER → 2021-05-22 16:20 | Outpatient (CLI) | payer OTHER, SELFPAY ==
--- NOTE | 2021-05-22 16:28 | MM_ITS ---
PROCEDURE INFORMATION: Exam: MG Bilateral Screening 3D Mammography Exam date and time: 05/22/2021 4:28 PM Age: 60 years old Clinical indication: Encounter for screening mammogram for malignant neoplasm of breast . No reported history of prior breast surgery or biopsy. TECHNIQUE: Imaging protocol: Bilateral screening tomosynthesis and 2D mammography including computer-aided detection (CAD) when performed. COMPARISON: 1. MG MM DIG SCREENING MAMM BI W/CAD 04/13/2020 9:05 AM 2. MG DMSB DIG MAMM-SCREEN [place] 11/08/2014 8:45 AM 3. MG DMSB DIG MAMM-SCREEN [place] 11/25/2012 8:39 AM FINDINGS: MAMMOGRAPHY: Breast composition: There are scattered areas of fibroglandular density. Mass: No suspicious masses. Architectural distortion: There is an area of architectural distortion in the right upper inner quadrant, anterior to middle depth. Patient denies history of prior right breast biopsy. Calcifications: No suspicious calcifications. Asymmetric density: None. Skin thickening: None. Axillary adenopathy: None. IMPRESSION: 1. Recommend right breast spot compression CC/MLO view, full field true lateral view and ultrasound for further evaluation of an area of architectural distortion in the right upper inner quadrant. Patient denies history of prior right breast biopsy. 2. No definite mammographic evidence of malignancy in the left breast. ASSESSMENT: BI-RADS Category 0: Incomplete- Need Additional Imaging Evaluation and/or Prior Mammograms for Comparison
== END ==
PROVIDERS: PCP Family Medicine; Visit Provider Family Medicine
DX: Z12.31 Encounter for screening mammogram for malignant neoplasm of breast (principal)
CPT/HCPCS: 77063; 77067

== ENCOUNTER → 2021-06-13 15:15 | Outpatient (CLI) | payer OTHER, SELFPAY ==
--- NOTE | 2021-06-13 15:17 | MM_ITS ---
PROCEDURE INFORMATION: Exam: US Right Breast, Complete MG Right Diagnostic Breast Tomosynthesis Exam date and time: 06/13/2021 3:17 PM Age: 60 years old Clinical indication: Patient recalled for further evaluation of questionable right breast distortion TECHNIQUE: Imaging protocol: Complete ultrasound of all four quadrants of the Right breast and the retroareolar regions, including ultrasound of the axilla when performed. Right Diagnostic tomosynthesis and 2D mammography including computer-aided detection (CAD) when performed. Unilateral or bilateral exam. COMPARISON: 1. MG MM DIG SCREENING MAMM BI W/CAD 05/22/2021 4:26 PM 2. MG MM DIG SCREENING MAMM BI W/CAD 04/13/2020 9:05 AM FINDINGS: MAMMOGRAPHY: Digital diagnostic spot compression views of the right breast and 90 degree lateral view of the right breast do not demonstrate any definitive persistent architectural distortion. ULTRASOUND: Sonographic images of the right breast including the retroareolar region, all 4 quadrants and the axilla do not demonstrate any solid or cystic masses. No architectural distortion or acoustical shadowing. No skin thickening or axillary adenopathy. Incidental lipoma measuring 1.1 cm in the right 1 o'clock axis IMPRESSION: No mammographic or sonographic evidence of malignancy. No definitive persistent distortion on additional imaging of the right breast or of a right breast ultrasound. Nevertheless, a six-month follow-up diagnostic right mammogram is recommended to ensure stability of the pattern identified unless otherwise clinically indicated. ASSESSMENT: BI-RADS Category 3: Probably benign
== END ==
PROVIDERS: PCP Family Medicine; Visit Provider Family Medicine
DX: R92.8 Other abnormal and inconclusive findings on diagnostic imaging of breast (principal)
CPT/HCPCS: 76641; 77061; 77065; G0279

== ENCOUNTER → 2021-07-13 14:06 | Outpatient (CLI) | payer OTHER, SELFPAY ==
[2021-07-13 14:08] LABS: Adenovirus F 40/41, stool Not Detected (NotDetected); Astrovirus Not Detected (NotDetected); Campylobacter Not Detected (NotDetected); Clostridium Difficile A/B, PCR Not Detected (NotDetected); Cryptosporidium Not Detected (NotDetected); Cyclospora Cayetanesis Not Detected (NotDetected); Entamoeba histolytica Not Detected (NotDetected); Enteroaggregative E coli Not Detected (NotDetected); Enteropathogenic E coli Not Detected (NotDetected); Enterotoxigenic E coli Not Detected (NotDetected); Giardia lamblia Not Detected (NotDetected); Norovirus Not Detected (NotDetected); Plesimonas Shigalloides, PCR Not Detected (NotDetected); Rotavirus A Not Detected (NotDetected); Salmonella, PCR Not Detected (NotDetected); Sapovirus Not Detected (NotDetected); Shiga-like toxin E coli Not Detected (NotDetected); Shigella Enterovasive E coli Not Detected (NotDetected); Vibrio Cholerae Not Detected (NotDetected); Vibrio, PCR Not Detected (NotDetected); Yersinia Entercolitica, PCR Not Detected (NotDetected)
== END ==
PROVIDERS: Visit Provider Nurse Practitioner Family
DX: R19.7 Diarrhea, unspecified (principal); R15.2 Fecal urgency
CPT/HCPCS: 87506

== ENCOUNTER → 2021-08-19 18:02 | Outpatient (CLI) | payer OTHER, SELFPAY ==
[2021-08-19 18:14] VITALS: BP 148/72; PULSE 59; RESP 20; TEMP 36.6; O2SAT 98; BMI 36.6
[2021-08-19 18:31] VITALS: BP 148/72; PULSE 59; RESP 20; TEMP 36.6; O2SAT 98
--- NOTE | 2021-08-19 20:20 | PC.NURSE ---
IV REMOVED. PT TOLERATED WELL. STATES SHE FEELS MUCH BETTER THAN ON ARRIVAL. PT AMBULATORY OFF UNIT AT THIS TIME.
== END ==
LOC: INF 18:04
PROVIDERS: PCP Family Medicine; Visit Provider Family Medicine
DX: E86.0 Dehydration (principal)
CPT/HCPCS: 96360; 96361

== ENCOUNTER → 2022-02-11 14:28 | Outpatient (CLI) | payer OTHER, SELFPAY ==
--- NOTE | 2022-02-11 14:35 | MM_ITS ---
PROCEDURE INFORMATION: Exam: MG Right Diagnostic Breast Tomosynthesis Exam date and time: 02/11/2022 2:39 PM Age: 61 years old Clinical indication: Short-term radiographic followup; Right breast TECHNIQUE: Imaging protocol: Right Diagnostic tomosynthesis and 2D mammography including computer-aided detection (CAD) when performed. Unilateral or bilateral exam. COMPARISON: 1. MG MM DIG MAMM DX UNILAT RT CAD 06/13/2021 3:15 PM 2. MG MM DIG SCREENING MAMM BI W/CAD 05/22/2021 4:26 PM FINDINGS: MAMMOGRAPHY: The breast tissue is composed of scattered areas of fibroglandular density. There is no stellate mass or suspicious microcalcifications in either breast to suggest malignancy. Subtle persistent architectural distortion may be seen anteriorly in the craniocaudal projection only. This is not confirmed in the second projection and the overall parenchymal pattern is stable compared to prior examination. No skin thickening or axillary adenopathy. IMPRESSION: Stable parenchymal pattern compared to prior mammogram dated 06/13/2021. A six-month follow-up diagnostic bilateral mammogram is recommended for continued close surveillance as well as part of an annual screening schedule ASSESSMENT: BI-RADS Category 3: Probably benign
== END ==
PROVIDERS: PCP Family Medicine; Visit Provider Family Medicine
DX: R92.8 Other abnormal and inconclusive findings on diagnostic imaging of breast (principal)
CPT/HCPCS: 77061; 77065; G0279

== ENCOUNTER → 2022-04-17 16:38 | Outpatient (CLI) | payer OTHER, SELFPAY ==
--- NOTE | 2022-04-17 17:17 | XR_ITS ---
PROCEDURE INFORMATION: Exam: XR Right Knee Exam date and time: 04/17/2022 5:09 PM Age: 61 years old Clinical indication: Pain; Knee; Right; Additional info: Right knee pain anterior TECHNIQUE: Imaging protocol: Radiologic exam of the Right knee. Views: 3 views. COMPARISON: No relevant prior studies available. FINDINGS: Bones/joints: No acute fracture or dislocation. There is a mildly expansile bubbly bone lesion in the proximal shaft of the fibula. Subtle changes of smooth periosteal new bone formation. Tricompartmental marginal spurring and mild tricompartmental joint space narrowing. Soft tissues: No soft tissue swelling. No effusion. IMPRESSION: Bubbly bone lesion in the proximal fibular shaft. If the patient has focal pain related to this area, recommend further evaluation with MRI.
== END ==
PROVIDERS: PCP Family Medicine; Visit Provider Family Medicine
DX: M25.561 Pain in right knee (principal)
CPT/HCPCS: 73562

== ENCOUNTER → 2022-05-23 07:32 | Outpatient (CLI) | payer OTHER, SELFPAY ==
--- NOTE | 2022-05-23 07:36 | MR_ITS ---
FINAL REPORT CLINICAL HISTORY: PAIN IN RIGHT KNEE.LATERAL SIDED KNEE PAIN. PAIN AROUND PATELLA. FINDINGS: Multiplanar MR imaging of the right knee was performed without contrast. The medial and lateral menisci are intact without evidence of meniscal tear. The anterior and posterior cruciate ligaments are intact. The medial collateral ligament and lateral ligamentous complex are intact. The patellar and quadriceps tendons are intact. There are moderate degenerative changes with severe medial compartment chondromalacia. There is a 6 mm subchondral cyst in the medial femoral condyle with adjacent bone marrow edema. There is also moderate patellofemoral chondromalacia. Small joint effusion is seen. The musculature is intact. Small popliteal cyst is identified. IMPRESSION: Degenerative change and chondromalacia. Subchondral cyst in the medial femoral condyle. Reviewed, Interpreted and Dictated by Binh Burrell III, MD Transcribed by Vi Magana Authenticated and [facility]
== END ==
LOC: RAD 07:33
PROVIDERS: PCP Family Medicine; Visit Provider Family Medicine
DX: M25.561 Pain in right knee (principal)
CPT/HCPCS: 73721

== ENCOUNTER 2024-10-05 13:13 | Outpatient (CLI) | payer OTHER, SELFPAY ==
--- NOTE | 2024-10-05 13:18 | XR_ITS ---
FINAL REPORT CLINICAL HISTORY: Pain x1 week COMPARISON: None FINDINGS: LEFT HIP Two views of the left hip and an AP pelvis view were obtained. There is no acute fracture or dislocation. The joint spaces are well-preserved. The visualized bony structures are well aligned. There is no acute soft tissue abnormality. IMPRESSION: No acute abnormality identified. Reviewed, Interpreted and Dictated by Saurabh Kirkland MD Transcribed by Latonya Pruett Authenticated and [facility]
== END 2024-10-05 23:59 | disposition home or self-care (01) ==
LOC: RAD 13:15
PROVIDERS: PCP Family Medicine; Visit Provider Family Medicine
DX: M25.552 Pain in left hip (principal)
CPT/HCPCS: 73502

== ENCOUNTER 2024-10-29 12:05 | Outpatient (CLI) | payer OTHER, SELFPAY ==
[2024-10-29 12:54] VITALS: BMI 36.6
--- NOTE | 2024-10-29 12:55 | ECG_ITS ---
APPROVED REPORT Exam: Resting ECG HR:57 bpm ECG Measurements Heart Rate 57 AXES WI 193 P 23 QRSd 80 QRS 7 QT 390 T 16 QTc 383 Conclusion SINUS BRADYCARDIA BORDERLINE ECG UNCONFIRMED REPORT Electronically signed by : Henry Tan MD 11/02/2024 08:08:50
[2024-10-29 13:53] LABS: Basophils % 0.3 % (0.1-2.0); Eosinophils # 0.1 Kmm3 (0.0-0.4); Eosinophils % 2.4 % (0.1-12.0); Hematocrit 37.8 % (37.0-47.0); Hemoglobin 12.4 g/dL (12.2-16.2); Immature Granulocytes # 0.02 10^3uL; Immature Granulocytes % 0.3 %; Lymphocytes # 1.6 K/mm3 (0.7-4.5); Lymphocytes % 26.4 % (10-50); Mean Corpuscular HGB Conc 32.8 g/dL (31.8-35.4); Mean Corpuscular Hemoglobin 29.6 pg (27.0-31.2); Mean Corpuscular Volume 90.2 fl (81-99); Mean Platelet Volume 10.8 fl (7.4-10.4); Monocytes # 0.5 K/mm3 (0.1-1.0); Monocytes % 8.8 % (1.7-9.3); Neutrophils # 3.7 K/mm3 (1.8-7.8); Neutrophils % 61.8 % (37.0-80.0); Nucleated Red Blood Cells # 0 10^3/uL; Nucleated Red Blood Cells % 0 %; Platelet Count 217 K/mm3 (142-424); Red Blood Count 4.19 M/mm3 (4.20-5.40); Red Cell Distribution Width 12.7 % (11.5-17.5); Red Cell Distribution Width-SD 41.6 fL; White Blood Count 5.9 K/mm3 (4.8-10.8)
[2024-10-29 14:25] LABS: Anion Gap 10.1 mEq/L (5-15); Blood Urea Nitrogen 9 mg/dl (7-17); Calcium 9.1 mg/dl (8.4-10.2); Carbon Dioxide 26 mmol/L (22.0-30.0); Chloride 104 mmol/L (98-107); Creatinine Clearance Estimated 81 mL/min (50-200); Estimated Glomerular Filt Rate 84 ml/min (>60); GFR (African American) 102 ML/MIN (>60); Glucose 95 mg/dl (74-100); Potassium 4.1 mmoL/L (3.5-5.1); Sodium 136 mmol/L (136-145)
== END 2024-10-29 23:59 | disposition home or self-care (01) ==
LOC: PREOP 12:06
PROVIDERS: Nurse Anesthetist, Certified Registered; PCP Family Medicine; Visit Provider Orthopaedic Surgery
DX: Z01.810 Encounter for preprocedural cardiovascular examination (principal); R00.1 Bradycardia, unspecified; R94.31 Abnormal electrocardiogram [ECG] [EKG]
CPT/HCPCS: 80048; 85025; 93005

== ENCOUNTER 2024-11-03 06:31 | Day surgery (SDC) | payer OTHER, SELFPAY ==
[2024-10-29 12:47] VITALS: BMI 36.6
--- NOTE | 2024-10-29 13:35 | SUR.PREOP ---
spoke to Dr Lee, [facility], regarding patient's blood thinners. Pt is to take her Eliquis Friday evening, do not take Friday-Friday morning, and continue Friday evening. Voicemail left to patient with callback information if she had any questions.
[2024-11-03 06:51] VITALS: BP 149/73; PULSE 67; RESP 16; TEMP 36.7; O2SAT 95
[2024-11-03] MEDS: LACTATED RINGERS 1000ML 1,000 ML 100 ML IV (06:51)
--- NOTE | 2024-11-03 07:07 | P.PNANES_ITS ---
[facility] Disclaimer: The information contained in this section may have been updated after the patient was seen, as this information can be updated by other users. Medical History Sleep apnea Fibromyalgia History of gastroesophageal reflux (GERD) Irritable bowel syndrome (IBS) Atrial fibrillation Mitral valve regurgitation Hypertension Hyperlipidemia History of anemia Surgical History Hx of cholecystectomy H/O prior ablation treatment History of repair of hiatal hernia Family History Father Family history of myocardial infarction Family history of diabetes mellitus type II Mother Family history of cancer Social History Smoking Status: Never smoker second hand exposure: No alcohol intake: never substance use type: denies use current occupational status: employed Travel in the last 8 weeks?: None household members: spouse housing: house 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 [employer] current occupational exposures/hazards: No caffeine: Yes Have you lived/traveled outside US in past 30 days?: No Contact w/someone who lives/traveled outside US past 30 days?: No Exposure to someone with infectious disease in past 14 days?: No Do you have a fever (greater than 100.4 F or 38 C)?: No Have you tested positive for COVID-19?: No Exposed to someone with COVID-19 in past 14 days?: No Do you have a sore throat?: No Do you have a cough?: No Do you have any weakness?: No Do you have any diarrhea?: No Are you experiencing any unusual bleeding?: No Do you have any muscle aches/pain?: No Do you have any abdominal pain?: No Are you experiencing loss of taste or smell?: No [facility] Anesthesia Checklist Patient Identification Patient Identification: Arm Band and Verbal (Name & ) Structural Data Admitted From: Home Planned Operative Procedure/s: hip injection Consent for Planned Operative Procedure(s) Verified: Yes Verified Documents: Surgical Consent and History and Physical NPO Status Verified Time NPO: 00:00 Additional verifications Anesthesia Reactions: No Hx Blood Transfusions: No Blood Transfusion Reaction: No Airway Assessment Mallampati Score:: Class II Dentition: Good Dentition Neurological Assessment Level of Consciousness: Awake, Alert and Appropriate Hx Seizures: No Anesthesia Plan Anesthesia Risk discussed: Yes Anesthesia Plan: Verified ASA Class: II Anesthesia Type: MAC
[2024-11-03] MEDS: TRIAMCINOLONE ACET 40MG/ML VIAL 80 MG (07:41)
[2024-11-03] MEDS: LIDOCAINE 1% 10ML MDV 10 ML (07:41)
[2024-11-03 07:54] VITALS: BP 109/64; PULSE 69; RESP 16; O2SAT 92
--- NOTE | 2024-11-03 07:56 | EXP.OP.NOTE ---
Date of procedure: 11/03/24 Pre-op Diagnosis:: Left hip pain osteoarthritis Post-op Diagnosis:: Same Procedure performed:: Left hip injection with arthrogram x-ray guidance for needle placement Surgeon:: Chele Arias DO SHIRT LINE OPERATOR:: Julian Ricci Anesthesia: MAC Estimated blood loss (mL): 0 Operative findings:: 3 cc clear joint fluid aspirated prior to injection Operative note:: Patient identified preoperatively. Left hip marked with yes my initials. Transferred operative suite placed upon the radiolucent bed. Given sedation. Left hip was then prepped and draped normal sterile fashion. Once prepped and draped final operative timeout performed to identify proper patient procedure and extremity. Everyone involved the case agreed. No counter indications beginning. X-rays brought into identify the hip joint. 18-gauge spinal needle was directed to the hip joint and proper trajectory. Aspiration was performed which resulted in aspiration of 3 cc of normal clear appearing joint fluid. Arthrogram was performed with contrast to confirm needle within the hip capsule once confirmed injection of 80 mg Kenalog 3 cc 1% lidocaine injected into the hip joint patient tolerated procedure well the needle was removed Band-Aid was placed taken recovery in stable condition. Condition: stable Disposition: PACU Complications:: None apparent
--- NOTE | 2024-11-03 07:58 | XR_ITS ---
FINAL REPORT CLINICAL HISTORY: IN OR HIP INJECTION 1.74 MGY 0.06 FLUORO TIME FINDINGS: FLUOROSCOPY LESS THAN 1 HOUR HISTORY: FINDINGS: Fluoroscopic guidance was provided for left hip injection. A single spot film was obtained. 6 seconds of fluoroscopy time were used, with a dosage of 1.74 mGy. IMPRESSION: As above. Reviewed, Interpreted and Dictated by Luis Dempsey MD Transcribed by Kassandra Akins Authenticated and [facility]
[2024-11-03] MEDS: IOPAMIDOL-370 (76%);100ML BOTTLE 10 ML IV (08:54)
== END 2024-11-03 07:54 | disposition home or self-care (01) ==
PROVIDERS: PCP Family Medicine; Visit Provider Orthopaedic Surgery
PROC: 3E0U3GC Introduction of Other Therapeutic Substance into Joints, Percutaneous Approach (ICD-10-PCS; CPT 20610; principal; 2024-11-03 07:30)
DX: M16.12 Unilateral primary osteoarthritis, left hip (principal); I48.91 Unspecified atrial fibrillation; M79.7 Fibromyalgia; K21.9 Gastro-esophageal reflux disease without esophagitis; E78.5 Hyperlipidemia, unspecified; I10 Essential (primary) hypertension; G47.30 Sleep apnea, unspecified; Z79.01 Long term (current) use of anticoagulants; Z79.899 Other long term (current) drug therapy
CPT/HCPCS: 27095; 73525; 73502; 76000; J2003; J2250; J2704; J3301; J7120; Q9967

== ENCOUNTER 2025-06-01 09:47 | Outpatient (CLI) | payer OTHER, SELFPAY ==
--- OUTSIDE RECORDS SUMMARY | 2024-03-15 04:00 | XMS_ITS ---
Author Organization [facility] Address [address] [facility] [address] [facility] [address] [place] [id number] Care Team Providers Care Cash Accounting Clerk Name Role Phone Yariel Lee Primary Care Provider [phone] Results Component Value Reference Range Notes CBC Venipuncture (in house) Reviewed date:03/16/2024 10:42:30 AM Interpretation:Normal Performing Lab: Notes/Report: Normal wbc 5.1 3.5 - 10 lymph 30.4% 15 - 50 mid 6.9% 2 - 15 gran 62.7% 35 - 80 rbc 4.56 3.5 - 5.5 hgb 13.5 11.5 - 16.5 hct 40.5 35 - 55 mcv 88.8 75 - 100 mch 29.7 25 - 35 mchc 33.5 31 - 38 platlet 195 100 - 400 P-Vitamin B12 Reviewed date:03/16/2024 10:42:29 AM Interpretation:310 Performing Lab: Notes/Report: Test performed by [facility] [address] [place], [place] [address] , [address], [place] [address] Harjeet Kramer MD, Modeling Agency Manager CLIA: [id number] Vitamin B12 367 866-8585 pg/mL P-Comprehensive Metabolic Pa demetrice (CMP) Reviewed date:03/16/2024 10:42:29 AM Interpretation:gluc 102 Performing Lab: Notes/Report: Test performed by [facility] [address] [place] [address] [address], [address], [place] [address] Harjeet Kramer MD, Modeling Agency Manager CLIA: [id number] Sodium 141 135-145 mmol/L Potassium 4.4 3.5-5.3 mmol/L Chloride 104 97-108 mmol/L CO2 29 22-32 mmol/L Glucose 102 65-99 mg/dL BUN 15 8-23 mg/dL Creatinine 0.75 0.50-1.00 mg/dL Calcium 9.3 8.6-10.4 mg/dL eGFR by Creatinine 89 >59 mL/min/1.73m2 Protein 6.4 6.0-8.3 g/dL Albumin 4.1 3.5-5.3 g/dL Alkaline Phosphatase 88 35-121 IU/L ALT (SGPT) 30 <5-47 IU/L AST (SGOT) 26 <5-40 IU/L Bilirubin, Total 0.4 <0.2-1.2 mg/dL A/G Ratio 1.8 1.1-2.5 P-Iron Reviewed date:03/16/2024 10:42:29 AM Interpretation:Normal Performing Lab: Notes/Report: Test performed by [facility] [address] [place] [address] , [place] [address] Harjeet Kramer MD, Modeling Agency Manager CLIA: [id number] Iron 92 37-145 ug/dL P-Lipid Panel Reviewed date:03/16/2024 10:42:29 AM Interpretation:chol 251, trigs 150, chol/hdl 5.12, non-hdl 202, ldl 172, ldl/hdl 3.5 Performing Lab: Notes/Report: Test performed by [facility] [address] [place] [address] , [place] [address] Harjeet Kramer MD, Modeling Agency Manager CLIA: [id number] Cholesterol 251 <200 mg/dL Triglycerides 150 <150 mg/dL HDL Cholesterol 49 >39 mg/dL Cholesterol / HDL Ratio 5.12 0.00-4.44 Ratio Non-HDL Cholesterol 202 <130 mg/dL LDL Cholesterol (Calculation) 172 <130 mg/dL LDL Cholesterol Levels* Less than 100 mg/dL Optimal 100 to 129 mg/dL Near Optimal/ Above Optimal 130 to 159 mg/dL Borderline High 160 to 189 mg/dL High 190 mg/dL and above Very High * Categories as recommended by the 2004 ATPIII guidelines LDL/HDL Ratio 3.5 <3.3 Ratio LDL Cholesterol Patient History Test Date: 03/15/2024 LDL Results: 172 Units: mg/dL % Change: - P-Magnesium Reviewed date:03/16/2024 10:42:29 AM Interpretation:Normal Performing Lab: Notes/Report: Test performed by [facility] [place] [address] Harjeet Kramer MD, Modeling Agency Manager CLIA: [id number] Magnesium 2.3 1.6-2.4 mg/dL P-Phosphorus Reviewed date:03/16/2024 10:42:29 AM Interpretation:Normal Performing Lab: Notes/Report: Test performed by [facility] , [place] [address] Harjeet Kramer MD, Modeling Agency Manager CLIA: [id number] Phosphorus 4.0 2.5-4.5 mg/dL P-Troponin I Reviewed date:03/16/2024 10:41:56 AM Interpretation: Performing Lab: Notes/Report: C-Abnfnxaz-O Reviewed date:03/16/2024 10:42:29 AM Interpretation:Normal Performing Lab: Notes/Report: Test performed by [facility] [address] [place] [id number] Harjeet Kramer MD, Modeling Agency Manager CLIA: [id number] Troponin-T 7 <6-18 ng/L Patients who are prescribed biotin may exhibit elevated troponin results. Please interpret results accordingly. P-TSH reflex to FT4 Reviewed date:03/16/2024 10:42:30 AM Interpretation:Normal Performing Lab: Notes/Report: Test performed by [facility] [address] [place] [address] , [address], [place] [address] Harjeet Kramer MD, Modeling Agency Manager CLIA: [id number] TSH reflex to FT4 1.58 0.43-5.25 mU/L P-Microalbumin/Creatinine, R andom Urine Sample Reviewed date:03/16/2024 10:42:30 AM Interpretation:Normal Performing Lab: Notes/Report: Test performed by [facility] [address] , [address], [place] [address] Harjeet Kramer MD, Modeling Agency Manager CLIA: [id number] Albumin/Creatinine Ratio, Urine 8 0-30 ug/m g Microalbumin, Urine, Random 1.0 Creatinine, Urine 118.2 P-Vitamin D 25-Hydroxy Reviewed date:03/16/2024 10:42:30 AM Interpretation:20.3 Performing Lab: Notes/Report: Test performed by [facility] [address] , [address], [place] [address] Harjeet Kramer MD, Modeling Agency Manager CLIA: [id number] Vitamin D 25-Hydroxy 20.3 30.0-100.0 ng/mL Interpretation of Vitamin D 25 OH: < 20 ng/mL - Deficiency 20 - 29 ng/mL - Insufficiency 30 - 100 ng/mL - Sufficiency > 100 ng/mL - Super-therapeutic- toxicity may occur above this level. Clinical correlation required. REASON FOR VISIT labs Medications Medication SIG (Take, Route, Frequency, Duration) Notes Start Date End Date Status cloNIDine HCl 0.1 MG 1 tablet Orally Renetta ry 8 Hours As Needed Active Irbesartan 300 MG 1 tablet Orally Once a day; Duration: 30 day(s) Active Omeprazole 40 MG 1 cap(s) orally once a day; Duration: 30 day(s) 03/05/2021 Active Sertraline HCl 100 MG 1 tablet Orally On ce a day; Duration: 90 days Active Cyclobenzaprine HCl 5 MG 1 tablet at bed time as needed Orally Two times a day 12/08/2023 Not-Taking CPAP SUPPLIES DIRECTED 04/18/2022 Act rodrigo Eliquis 5 MG 1 tablet orally 2 times a day; Duration: 90 days Active Metoprolol Succinate ER 100 mg TAKE ONE TABLET BY MOUTH EVERY DAY; Duration: 90 Active Problems Problem Type SNOMED Code ICD Code Onset Dates Problem Status W/U Status Risk Notes Problem Essential hypertension (86015295) HTN (hypertensi on), benign (I10) Active confirmed Encounters Encounter Location Date Provider Diagnosis [facility] [address] [facility] [address] [place], [place] [id number] 03/15/2024 Yariel Lee HTN (hypertension), benign I10 ; Pure hypercholesterolemia E78.00 ; Iron deficiency anemia due to chronic blood loss D50.0 ; Vitamin D deficiency E55.9 ; Atypical chest pain R07.89 and Other fatigue R53.83 Assessments Encounter Date Diagnosis (ICD Code) Assessment Notes Treatment Notes Treatment Clinical Notes Section Notes 03/15/2024 HTN (hypertension), benign (ICD-10 - I10) 03/15/2024 Pure hypercholesterolemia (ICD-10 - E78.00) 03/15/2024 Iron deficiency anem ia due to chronic blood loss (ICD-10 - D50.0) 03/15/2024 Vitamin D deficiency (ICD-10 - E55.9) 03/15/2024 Atypical chest pain (ICD-10 - R07.89) 03/15/2024 Other fatigue (ICD-1 0 - R53.83) Plan Of Treatment No Information Progress Notes * Samra MORTENSENDOB:1960 ( 64 yo F)Acc No.[id number]:03/15/2024 Patient: Samra CHIN Provider: Cathy Lee M.D. :1960 A ge:63 Y S ex:Female Date:03/15/2024 Address:[address] [place] [address] [address], [id number] Subjective: * Chief Complaints: * 1 . Labs. * HPI: H PI: 63 year old female presents with c/o Patient is here today for?check up, has had chest pain off and on for 2 weeks, BP noted to be high yesterday. Started Irbesartan and Clonidine PRN yesterday, chest pain has resolved. * Medical History: * Medications: T aking cloNIDine HCl 0.1 MG Tablet 1 tablet Orally Every 8 Hours As Needed , Taking Irbesartan 300 MG Tablet 1 tablet Orally Once a day , Taking Omeprazole 40 MG Capsule Delayed Release 1 cap(s) orally once a day , Taking CPAP SUPPLIES DIRECTED , Taking Eliquis 5 MG Tablet 1 tablet orally 2 times a day , Taking Metoprolol Succinate ER 100 mg Tablet Extended Release 24 Hour TAKE ONE TABLET BY MOUTH EVERY DAY , Taking Sertraline HCl 100 MG Tablet 1 tablet Orally Once a day , Not- Taking Cyclobenzaprine HCl 5 MG Tablet 1 tablet at bedtime as needed Orally Two times a day , Discontinued Xifaxan 550 MG Tablet 1 tab(s) orally 3 times a day , Discontinued Furosemide 20 MG Tablet 2 tab(s) orally once a day , Medication List reviewed and reconciled with the patient Objective: * Vitals: * Examination: G eneral Examination: General Appearance: N AD, BP 132/74, HR 58 now. H eart:?RSR. L ungs: c lear to auscultation. Assessment: * Assessment: 1. H TN (hypertension), benign - I10 (Primary) 2 . P ure hypercholesterolemia - E78.00 3 . I keely deficiency anemia due to chronic blood loss - D50.0 ? 4 . V itamin D deficiency - E55.9 5 . A typical chest pain - R07.89 6 . O ther fatigue - R53.83 Plan: * Treatment: Value Reference Range A /G Ratio 1.8 1.1-2.5 - * A lbumin 4.1 3.5-5.3 - g/dL * A lkaline Phosphatase 88 35-121 - IU/L * A LT (SGPT) 30 <5-47 - IU/L * A ST (SGOT) 26 <5-40 - IU/L * B ilirubin, Total 0.4 <0.2-1.2 - mg/dL * B UN 15 8-23 - mg/dL * C alcium 9.3 8.6-10.4 - mg/dL * C hloride 104 97-108 - mmol/L * C O2 29 22-32 - mmol/L * C reatinine 0.75 0.50-1.00 - mg/dL * G lucose 102 H 65-99 - mg/dL * P otassium 4.4 3.5-5.3 - mmol/L * S odium 141 135-145 - mmol/L * P rotein 6.4 6.0-8.3 - g/dL * e GFR by Creatinine 89 >59 - mL/min/1.73m2 * Tawana Anderson 03/16/2024 10:42 :22 AM >See phone encounter ?LAB: P-Microalbumin/Creatinine, Random Urine Sample (Collection Date & Time - 03/15/2024 08:05 AM)?Normal* Value Reference Range A lbumin/Creatinine Ratio, Urine 8 0-30 - ug /mg * C reatinine, Urine 118.2 - mg/dL * M icroalbumin, Urine, Random 1.0 - mg/dL * Tawana Anderson 03/16/2024 10:42 :22 AM >See phone encounter 2.?Pure hypercholesterolemia?LAB: P-Comprehensive Metabolic Panel (CMP) (Collection Date & Time - 03/15/2024 08:05 AM)?gluc 102* Value Reference Range A /G Ratio 1.8 1.1-2.5 - * A lbumin 4.1 3.5-5.3 - g/dL * A lkaline Phosphatase 88 35-121 - IU/L * A LT (SGPT) 30 <5-47 - IU/L * A ST (SGOT) 26 <5-40 - IU/L * B ilirubin, Total 0.4 <0.2-1.2 - mg/dL * B UN 15 8-23 - mg/dL * C alcium 9.3 8.6-10.4 - mg/dL * C hloride 104 97-108 - mmol/L * C O2 29 22-32 - mmol/L * C reatinine 0.75 0.50-1.00 - mg/dL * G lucose 102 H 65-99 - mg/dL * P otassium 4.4 3.5-5.3 - mmol/L * S odium 141 135-145 - mmol/L * P rotein 6.4 6.0-8.3 - g/dL * e GFR by Creatinine 89 >59 - mL/min/1.73m2 * JustinTawana 03/16/2024 10:42 :22 AM >See phone encounter ?LAB: P-Lipid Panel (Collection Date & Time - 03/15/2024 08:05 AM)?chol 251, trigs 150, chol/hdl 5.12, non-hdl 202, ldl 172, ldl/hdl 3.5* Value Reference Range C holesterol / HDL Ratio 5.12 H 0.00-4.44 - Ratio * C holesterol 251 H <200 - mg/dL * H DL Cholesterol 49 >39 - mg/dL * L DL Cholesterol (Calculation) 172 H <130 - mg/d L * L DL/HDL Ratio 3.5 H <3.3 - Ratio * N on-HDL Cholesterol 202 H <130 - mg/dL * T riglycerides 150 H <150 - mg/dL * Tawana Anderson 03/16/2024 10:42 :22 AM >See phone encounter ?LAB: P-TSH reflex to FT4 (Collection Date & Time - 03/15/2024 08:05 AM)? Normal* Value Reference Range T SH reflex to FT4 1.58 0.43-5.25 - mU/L * Tawana Anderson 03/16/2024 10:42 :22 AM >See phone encounter 3.?Iron deficiency anemia due to chronic blood loss?LAB: P-Iron (Collection Date & Time - 03/15/2024 08:05 AM)?Normal* Value Reference Range I keely 92 37-145 - ug/dL * JustinTawana rdz 03/16/2024 10:42 :22 AM >See phone encounter ?LAB: CBC Venipuncture (in house) (Collection Date & Time - 03/15/2024)? Normal* Value Reference Range w bc 5.1 3.5 - 10 * l ymph 30.4% 15 - 50 * m id 6.9% 2 - 15 * g ran 62.7% 35 - 80 * r bc 4.56 3.5 - 5.5 * h gb 13.5 11.5 - 16.5 * h ct 40.5 35 - 55 * m cv 88.8 75 - 100 * m ch 29.7 25 - 35 * m chc 33.5 31 - 38 * p latlet 195 100 - 400 * Rae Lewis 03/15/2024 10:19:1 5 AM > Tawana Anderson 03/16/2024 10:42:22 AM >See phone encounter 4.?Vitamin D deficiency?LAB: P-Vitamin D 25-Hydroxy (Collection Date & Time - 03/15/2024 08:05 AM)? 20.3* Value Reference Range V itamin D 25-Hydroxy 20.3 L 30.0-100.0 - ng/mL * Tawana Anderson 03/16/2024 10:42 :22 AM >See phone encounter 5.?Atypical chest pain?LAB: P-Troponin I (Collection Date & Time - 03/16/2024)* see duplicate order 6.?Other fatigue?LAB: P-Vitamin B12 (Collection Date & Time - 03/15/2024 08:05 AM)?310* Value Reference Range V itamin B12 782 865-3726 - pg/mL * Tawana Anderson 03/16/2024 10:42 :22 AM >See phone encounter ?LAB: P-Magnesium (Collection Date & Time - 03/15/2024 08:05 AM)?Normal* Value Reference Range M agnesium 2.3 1.6-2.4 - mg/dL * Tawana Anderson 03/16/2024 10:42 :22 AM >See phone encounter ?LAB: P-Phosphorus (Collection Date & Time - 03/15/2024 08:05 AM)?Normal* Value Reference Range P hosphorus 4.0 2.5-4.5 - mg/dL * Tawana Anderson 03/16/2024 10:42 :22 AM >See phone encounter * Labs: * L ab: B-Enspgpzq-B (Collection Date & Time - 03/15/2024 08:05 AM) N ormal Value Reference Range T roponin-T 7 <6-18 - ng/L * [facility] 03/16/2024 08:05:11 : This order was created by the Interface. Tawana Anderson 03/16/2024 10:42:22 AM >See phone encounter * Procedure Codes: 8 5025 CBC WITH AUTO DIFF * Images: Billing Information: * Visit Code: * Procedure Codes: 22773 CBC WITH AUTO DIFF. * Electronic signature of Hillary Lee MD on 06/01/2025 at 11:23 AM EST Sign off status: Pending * Provider: Cathy Lee M.D. Date: 0 03/15/2024 Generated for Anjum chopra/Roseann/Elaineransmitting on: 1 08/02/2024 11:23 AM EST History and Physical Notes * HPI (History of Present Illness) Category Sub-Category Detail Notes Category Not es HPI Patient is here today for check up, has had chest pain off and on for 2 weeks, BP noted to be high yesterday. Started Irbesartan and Clonidine PRN yesterday, chest pain has resolved Examination Category Sub-Category Detail Notes Category Not es General Examination Heart: RSR Lungs: clear to auscultatio n General Appearance: NAD, BP 132/74, HR 5 8 now
--- OUTSIDE RECORDS SUMMARY | 2024-10-04 10:30 | XMS_ITS ---
Author Organization [facility] Address [address] [facility] [address] [id number] Care Team Providers Care Airline Reservationist Name Role Phone Yariel Lee Primary Care Provider Allergies No Known Allergies REASON FOR VISIT ckup Medications Medication SIG (Take, Route, Frequency, Duration) Notes Start Date End Date Status cloNIDine HCl 0.1 MG 1 tablet Orally Renetta ry 8 Hours As Needed Not-Taking Sertraline HCl 100 MG 1 tablet Orally On ce a day; Duration: 90 days Active Eliquis 5 mg TAKE ONE TABLET BY MOUTH TWICE DAILY; Duration: 90 Active Irbesartan 300 MG 1 tablet Orally Once a day; Duration: 90 days Active Cyclobenzaprine HCl 5 MG 1 tablet at bed time as needed Orally Two times a day 12/08/2023 Not-Taking Metoprolol Succinate ER 100 mg TAKE ONE TABLET BY MOUTH EVERY DAY; Duration: 90 Active CPAP SUPPLIES DIRECTED 04/18/2022 Act rodrigo Omeprazole 40 MG 1 cap(s) orally once a day; Duration: 30 day(s) 03/05/2021 Active Rosuvastatin Calcium 20 mg TAKE ONE TABL ET BY MOUTH EVERY DAY Active Problems Problem Type SNOMED Code ICD Code Onset Dates Problem Status W/U Status Risk Notes Problem Postprandial hypoglycemia (545552494) 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 Vital Signs Weight 000 lbs 10/04/2024 Blood pressure systolic 120 mm Hg 10/05/19 25 Blood pressure diastolic 78 mm Hg 025 Heart Rate 56 /min 10/04/2024 Height 62.50 in 10/04/2024 Encounters Encounter Location Date Provider Diagnosis [place] [address] [place] [id number] 10/04/2024 Yariel Lee Postprandial hypogly cemia E16.1 ; Pure hypercholesterolemia E78.00 and Vitamin D deficiency E55.9 Assessments Encounter Date Diagnosis (ICD Code) Assessment Notes Treatment Notes Treatment Clinical Notes Section Notes 10/04/2024 Postprandial hypoglycemia (ICD-10 - E16.1) 10/04/2024 Pure hypercholesterolemia (ICD-10 - E78.00) 10/04/2024 Vitamin D deficiency (ICD-10 - E55.9) 10/04/2024 Other Patient to have the following fasting labs in the morning: CBC, Insulin level, CMP, Lipid & Vit D Plan Of Treatment Medication Medication Name Sig Start Date Stop Date Notes Rosuvastatin Calcium 20 mg TAKE ONE TABL ET BY MOUTH EVERY DAY Treatment Notes Assessment Notes Other Patient to have the following fasting labs in the morning: CBC, Insulin level, CMP, Lipid & Vit D Next Appt Details Follow Up: via phone to repo rt test results, Reason: Progress Notes * FESTUSSamraDOB:1960 ( 64 yo F)Acc No.[id number]:10/04/2024 Progress Notes Patient: Samra CHIN Provider: Cathy Lee M.D. :1960 A ge:64 Y S ex:Female Date:10/04/2024 Address:[address] [place] [address] [address], [id number] Subjective: * Chief Complaints: * 1 . Ckup. * HPI: H PI: 64 year old female presents with c/o Patient is here today for?Pt is here today for a check up. * ROS: D ERMATOLOGY: no R cesar. n o H juan. G ASTROENTEROLOGY: no N ausea. n o V omiting. n o D iarrhea.? M USCULOSKELETAL: Positive for r ight knee pain. Pt sts she has had pain for a year and half to two years. Pt sts it does occasionally swell. Pt sts it does pop occasionally .? U ROLOGY: no D ifficulty urinating. n o B lood in urine. * Medical History: A trial fibrillation, Mitral valve prolapse, Migraine headache, Irritable bowel syndrome. * Surgical History: g allbladder , Hiatal Hernia repai 2020. * Hospitalization/Major Diagno stic Procedure: H iatal Hernia Repair - [facility] 2020. * Family History: F ather: alive. M other: . 1 brother(s) , 2 sister(s) . 1 son(s) , 2 daughter(s) . . * Social History: C URRENT TOBACCO USE S moking Status: Patient does NOT smoke. C affeine: yes, frequency:. Marital Status: . Past smoking status: no. Sexually active: yes. * Medications: T aking Omeprazole 40 MG Capsule Delayed Release 1 cap(s) orally once a day , Taking CPAP SUPPLIES DIRECTED , Taking Metoprolol Succinate ER 100 mg Tablet Extended Release 24 Hour TAKE ONE TABLET BY MOUTH EVERY DAY , Taking Irbesartan 300 MG Tablet 1 tablet Orally Once a day , Taking Eliquis 5 mg Tablet TAKE ONE TABLET BY MOUTH TWICE DAILY , Taking Sertraline HCl 100 MG Tablet 1 tablet Orally Once a day , Taking Rosuvastatin Calcium 20 mg Tablet TAKE ONE TABLET BY MOUTH EVERY DAY , Not- Taking cloNIDine HCl 0.1 MG Tablet 1 tablet Orally Every 8 Hours As Needed , Not-Taking Cyclobenzaprine HCl 5 MG Tablet 1 tablet at bedtime as needed Orally Two times a day , Medication List reviewed and reconciled with the patient * Allergies: N .K.D.A. Objective: * Vitals: W t: 000, Temp: 97.5, BP: 120/78, HR: 56, Nurse: matty, Ht: 62.50. * Examination: G eneral Examination: General Appearance: N AD. H eart: R SR. L ungs:?clear to auscultation. P eripheral pulses: n ormal (2+) bilaterally. E xtremities:?no leg edema. Assessment: * Assessment: 1. P ostprandial hypoglycemia - E16.1 (Primary) 2 . P ure hypercholesterolemia - E78.00 3 . V itamin D deficiency - E55.9 Plan: * Treatment: 2. O thers Notes: Patient to have the following fasting labs in the morning: CBC, Insulin level, CMP, Lipid & Vit D * Procedure Codes: 3 074F SYST BP LT 130 MM HG, 3078F DIAST BP < 80 MM HG * Follow Up: v ia phone to report test results * Images: Billing Information: * Visit Code: 59020 Office Visit, Est Pt., Level 4. * Procedure Codes: 3074F SYST BP LT 130 MM HG. 3078F DIAST BP < 80 MM HG. * Electronic signature of Hillary Lee MD on 06/01/2025 at 11:23 AM EST Sign off status: Pending * Provider: Cathy Lee M.D. Date: 0 10/04/2024 Generated for Anjum chopra/Roseann/Jasvirsmitting on: 1 08/02/2024 11:23 AM EST History and Physical Notes * HPI (History of Present Illness) Category Sub-Category Detail Notes Category Not es HPI Patient is here today for Pt is here toda y for a check up Examination Category Sub-Category Detail Notes Category Not es General Examination Heart: RSR Lungs: clear to auscultatio n Extremities: no leg edema General Appearance: NAD Peripheral pulses: normal (2+) bilatera lly
--- OUTSIDE RECORDS SUMMARY | 2024-10-05 03:30 | XMS_ITS ---
Author Organization [facility] Address [address] [facility] [address] [phone] Care Team Providers Care Tools Administrator Name Role Phone Yariel Lee Primary Care Provider Allergies No Known Allergies Results Component Value Reference Range Notes CBC Fingerstick (in house) Reviewed date:10/11/2024 03:14:32 PM Interpretation:Normal Performing Lab: Notes/Report: Normal wbc 5.4 3.5 - 10 lym 22.8% 15 - 50 mid 5.9% 2 - 15 gran 71.3% 35 - 80 rbc 4.23 3.5 - 5.5 hgb 12.6 11.5 - 16.5 hct 37.4 35 - 55 mcv 88.4 75 - 100 mch 29.8 25 - 35 mchc 33.7 31 - 38 plat 209 100 - 400 P-Comprehensive Metabolic Pa demetrice (CMP) Reviewed date:10/11/2024 03:15:15 PM Interpretation:Normal Performing Lab: Notes/Report: Test performed by [facility] [address] [place] [address] , [address], [place] [address] Harjeet Kramer MD, [employer] Administrator CLIA: [id number] Sodium 142 135-145 mmol/L Potassium 4.4 3.5-5.3 mmol/L Chloride 105 97-108 mmol/L CO2 25 22-32 mmol/L Glucose 94 65-99 mg/dL BUN 11 8-23 mg/dL Creatinine 0.82 0.50-1.00 mg/dL Calcium 8.8 8.6-10.4 mg/dL eGFR by Creatinine 80 >59 mL/min/1.73m2 Protein 6.0 6.0-8.3 g/dL Albumin 3.7 3.5-5.3 g/dL Alkaline Phosphatase 108 35-121 IU/L ALT (SGPT) 19 <5-47 IU/L AST (SGOT) 18 <5-40 IU/L Bilirubin, Total 0.3 <0.2-1.2 mg/dL A/G Ratio 1.6 1.1-2.5 P-Insulin Total Random Reviewed date:10/11/2024 03:15:37 PM Interpretation:Normal Performing Lab: Notes/Report: Test performed by [facility] [address] [place] [address] , [place] [address] Harjeet Kramer MD, [employer] System Administrator CLIA: [id number] Insulin Total Random 15.9 2.6-24.9 uIU/mL P-Lipid Panel Reviewed date:10/11/2024 03:16:31 PM Interpretation:Normal Performing Lab: Notes/Report: Test performed by [facility] [address] [place] [address] , [address], [place] [id number] Harjeet Kramer MD, [employer] System Administrator CLIA: [id number] Cholesterol 128 <200 mg/dL Triglycerides 131 <150 mg/dL HDL Cholesterol 42 >39 mg/dL Cholesterol / HDL Ratio 3.05 0.00-4.44 Ratio Non-HDL Cholesterol 86 <130 mg/dL LDL Cholesterol (Calculation) 60 <130 mg/dL LDL Cholesterol Levels* Less than 100 mg/dL Optimal 100 to 129 mg/dL Near Optimal/ Above Optimal 130 to 159 mg/dL Borderline High 160 to 189 mg/dL High 190 mg/dL and above Very High * Categories as recommended by the 2004 ATPIII guidelines LDL/HDL Ratio 1.4 <3.3 Ratio LDL Cholesterol Patient History Test Date: 03/15/2024 LDL Results: 172 Units: mg/dL % Change: - Test Date: 10/05/2024 LDL Results: 60 Units: mg/dL % Change: -65% P-Vitamin D 25-Hydroxy Reviewed date:10/11/2024 03:14:51 PM Interpretation:36.3 Performing Lab: Notes/Report: Test performed by [facility], [address] , [address], [place] [address] Harjeet Kramer MD, [employer] System Administrator CLIA: [id number] Vitamin D 25-Hydroxy 36.3 30.0-100.0 ng/mL Interpretation of Vitamin D 25 OH: < 20 ng/mL - Deficiency 20 - 29 ng/mL - Insufficiency 30 - 100 ng/mL - Sufficiency > 100 ng/mL - Super-therapeutic- toxicity may occur above this level. Clinical correlation required. X ray : Hip, left Reviewed date:10/11/2024 03:14:40 PM Interpretation:Negative Performing Lab: Notes/Report: Negative REASON FOR VISIT Blood Work Medications Medication SIG (Take, Route, Frequency, Duration) Notes Start Date End Date Status Eliquis 5 mg TAKE ONE TABLET BY MOUTH TWICE DAILY; Duration: 90 Active Irbesartan 300 MG 1 tablet Orally Once a day; Duration: 90 days Active Metoprolol Succinate ER 100 mg TAKE ONE TABLET BY MOUTH EVERY DAY; Duration: 90 Active CPAP SUPPLIES DIRECTED 04/18/2022 Act rodrigo Omeprazole 40 MG 1 cap(s) orally once a day; Duration: 30 day(s) 03/05/2021 Active Cyclobenzaprine HCl 5 MG 1 tablet at bed time as needed Orally Two times a day 12/08/2023 Not-Taking cloNIDine HCl 0.1 MG 1 tablet Orally Renetta ry 8 Hours As Needed Not-Taking Rosuvastatin Calcium 20 mg TAKE ONE TABL ET BY MOUTH EVERY DAY Active Sertraline HCl 100 MG 1 tablet Orally On ce a day; Duration: 90 days Active Encounters Encounter Location Date Provider Diagnosis [facility] [address] [facility] [address] [place], [place] [phone] 10/05/2024 aYriel Lee Vitamin D deficiency E55.9 ; Pure hypercholesterolemia E78.00 ; Iron deficiency anemia due to chronic blood loss D50.0 ; HTN (hypertension), benign I10 ; Postprandial hypoglycemia E16.1 and Left hip pain M25.552 Assessments Encounter Date Diagnosis (ICD Code) Assessment Notes Treatment Notes Treatment Clinical Notes Section Notes 10/05/2024 Vitamin D deficiency (ICD-10 - E55.9) 10/05/2024 Pure hypercholesterolemia (ICD-10 - E78.00) 10/05/2024 Iron deficiency anem ia due to chronic blood loss (ICD-10 - D50.0) 10/05/2024 HTN (hypertension), benign (ICD-10 - I10) 10/05/2024 Postprandial hypoglycemia (ICD-10 - E16.1) 10/05/2024 Left hip pain (ICD-1 0 - M25.552) Plan Of Treatment No Information Progress Notes * Samra MORTENSENDOB:1960 ( 64 yo F)Acc No.[id number]:10/05/2024 Patient: Samra CHIN Provider: Cathy Lee M.D. :1960 A ge:64 Y S ex:Female Date:10/05/2024 Address:[address] [facility] [address], [facility] Subjective: * Chief Complaints: * 1 . Blood Work. * Medical History: A trial fibrillation, Mitral valve prolapse, Migraine headache, Irritable bowel syndrome. * Medications: T aking Omeprazole 40 MG [...] as needed Orally Two times a day * Allergies: N .K.D.A. Objective: * Vitals: Assessment: * Assessment: 1. V itamin D deficiency - E55.9 2 . P ure hypercholesterolemia - E78.00? 3. I keely deficiency anemia due to chronic blood loss - D50.0 4 .?HTN (hypertension), benign - I10 5 . P ostprandial hypoglycemia - E16.1 6. L eft hip pain - M25.552 Plan: * Treatment: Value Reference Range V itamin D 25-Hydroxy 36.3 30.0-100.0 - ng/mL 2.?Pure hypercholesterolemia?LAB: P-Lipid Panel (Collection Date & Time - 10/05/2024 08:03 AM)?Normal* Value Reference Range C holesterol / HDL Ratio 3.05 0.00-4.44 - Ratio * C holesterol 128 <200 - mg/dL * H DL Cholesterol 42 >39 - mg/dL * L DL Cholesterol (Calculation) 60 <130 - mg/d L * L DL/HDL Ratio 1.4 <3.3 - Ratio * N on-HDL Cholesterol 86 <130 - mg/dL * T riglycerides 131 <150 - mg/dL 3.?HTN (hypertension), benign?LAB: P-Comprehensive Metabolic Panel (CMP) (Collection Date & Time - 10/05/2024 08:03 AM)?Normal* Value Reference Range A /G Ratio 1.6 1.1-2.5 - * A lbumin 3.7 3.5-5.3 - g/dL * A lkaline Phosphatase 108 35-121 - IU/L * A LT (SGPT) 19 <5-47 - IU/L * A ST (SGOT) 18 <5-40 - IU/L * B ilirubin, Total 0.3 <0.2-1.2 - mg/dL * B UN 11 8-23 - mg/dL * C alcium 8.8 8.6-10.4 - mg/dL * C hloride 105 97-108 - mmol/L * C O2 25 22-32 - mmol/L * C reatinine 0.82 0.50-1.00 - mg/dL * G lucose 94 65-99 - mg/dL * P otassium 4.4 3.5-5.3 - mmol/L * S odium 142 135-145 - mmol/L * P rotein 6.0 6.0-8.3 - g/dL * e GFR by Creatinine 80 >59 - mL/min/1.73m2 4.?Left hip pain?Imaging: X ray : Hip, left (Performed Date - 10/05/2024)?Negative * Labs: * L ab: CBC Fingerstick (in house) (Collection Date & Time - 10/05/2024) N ormal Value Reference Range w bc 5.4 3.5 - 10 * l ym 22.8% 15 - 50 * m id 5.9% 2 - 15 * g ran 71.3% 35 - 80 * r bc 4.23 3.5 - 5.5 * h gb 12.6 11.5 - 16.5 * h ct 37.4 35 - 55 * m cv 88.4 75 - 100 * m ch 29.8 25 - 35 * m chc 33.7 31 - 38 * p lat 209 100 - 400 * Leonor Drea L 10/05/2024 08 :40:39 AM > ?Lab: P-Insulin Total Random (Collection Date & Time - 10/05/2024 08:03 AM) ?Normal* Value Reference Range I nsulin Total Random 15.9 2.6-24.9 - uIU/mL * [facility], IT support 10/06/2024 04:35:06 : This order was created by the Interface. * Procedure Codes: 8 5025 CBC WITH AUTO DIFF * Images: Billing Information: * Visit Code: * Procedure Codes: 19357 CBC WITH AUTO DIFF. * Electronic signature of Hillary Lee MD on 06/01/2025 at 11:23 AM EST Sign off status: Pending * Provider: Cathy Lee M.D. Date: 0 10/05/2024 Generated for Anjum chopra/Roseann/Satnamitting on: 1 08/02/2024 11:23 AM EST
--- OUTSIDE RECORDS SUMMARY | 2024-10-11 08:00 | XMS_ITS ---
Author Organization [facility] Address [address] [facility] [address] [place] [phone] Care Team Providers Care Welfare Director Name Role Phone Yariel Lee Primary Care Provider Allergies No Known Allergies Results Component Value Reference Range Notes MRI : Hip, left, without con trast Reviewed date:10/25/2024 04:47:43 PM Interpretation: Performing Lab: Notes/Report: REASON FOR VISIT hip pain Medications Medication SIG (Take, Route, Frequency, Duration) Notes Start Date End Date Status Rosuvastatin Calcium 20 mg TAKE ONE TABL [...] Renetta ry 8 Hours As Needed Not-Taking dexAMETHasone 4 MG 1 tablet Orally Two times a day; Duration: 5 days 10/11/2024 Active Encounters Encounter Location Date Provider Diagnosis [place] [address] [facility] [address] [place] [phone] 10/11/2024 Yariel Lee Left hip pain M25.55 2 Assessments Encounter Date Diagnosis (ICD Code) Assessment Notes Treatment Notes Treatment Clinical Notes Section Notes 10/11/2024 Left hip pain (ICD-10 - M25.552) Plan Of Treatment Medication Medication Name Sig Start Date Stop Date Notes dexAMETHasone 4 MG 1 tablet Orally Two times a day; Duration: 5 days 10/11/2024 Progress Notes * Samra MORTENSENDOB:1960 ( 64 yo F)Acc No.[id number]:10/11/2024 Progress Notes Patient: Samra CHIN Provider: Cathy Lee M.D. :1960 A ge:64 Y S ex:Female Date:10/11/2024 Address:[address] [place] [address], [id number] Subjective: * Chief Complaints: * 1 . Hip pain. * Medical History: A trial fibrillation, Mitral [...] * Allergies: N .K.D.A. Objective: * Vitals: * Examination: H ip / Thigh: Hip joint: l eft. R oseas of motion: A bnormal Scour and KAREN tests. Assessment: * Assessment: 1. L eft hip pain - M25.552 (Primary) Plan: * Treatment: * Images: Billing Information: * Visit Code: * Procedure Codes: * Electronic signature of Hillary Lee MD on 06/01/2025 at 11:23 AM EST Sign off status: Pending * Provider: Cathy Lee M.D. Date: 0 10/11/2024 Generated for Anjum chopra/Roseann/Basilio on: 1 08/02/2024 11:23 AM EST History and Physical Notes * Examination Category Sub-Category Detail Notes Category Not es Hip / Thigh Range of motion: Abnormal Scour and KAREN tests Hip joint: left
--- OUTSIDE RECORDS SUMMARY | 2024-10-18 04:00 | XMS_ITS ---
Author Organization [facility] Address [address] [facility] [address] [place] [phone] Care Team Providers Care Auriculotherapist Name Role Phone Yariel Lee Primary Care Provider [phone] Allergies No Known Allergies Results Component Value Reference Range Notes CBC Venipuncture (in house) Reviewed date:10/21/2024 10:21:15 AM Interpretation:wbc 12.8 Performing Lab: Notes/Report: wbc 12.8 wbc 12.8 3.5 - 10 lymph 20.8 15 - 50 mid 5.7 2 - 15 gran 73.5 35 - 80 rbc 4.69 3.5 - 5.5 hgb 13.9 11.5 - 16.5 hct 41.7 35 - 55 mcv 88.9 75 - 100 mch 29.7 25 - 35 mchc 33.4 31 - 38 platlet 314 100 - 400 P-Arthritis Panel, Bloxr Reviewed date:10/21/2024 10:21:15 AM Interpretation:Normal Performing Lab: Notes/Report: Test performed by [facility] [address] [place] [address] , [address], [place] [address] Harjeet Kramer MD, Placement Secretary CLIA: [id number] Erythrocyte Sedimentation Rate (ESR), Automated 2 <31 mm/hr Rheumatoid Factor <10 <14.1 IU/mL C-Reactive Protein (CRP) 0.33 <0.50 mg/dL Antinuclear Antibodies (NILA) Screen, Reflex NILA 9 Panel Negative Negative This test is performed by Multiplex Bead Immunoassay methodology. Antinuclear Antibodies (NILA) Result Note SEE COMMENT For positive Autoantibodies, please refer to the interpretive chart here: [email or web address] CCP Antibodies <0.5 <0.5-3.0 U/mL P-Uric Acid Reviewed date:10/21/2024 10:21:15 AM Interpretation:Normal Performing Lab: Notes/Report: Test performed by [facility], [address] , [address], [place] [address] Harjeet Kramer MD, Placement Secretary CLIA: [id number] Uric Acid 4.9 2.4-7.0 mg/dL REASON FOR VISIT Hip pain Medications Medication SIG (Take, Route, Frequency, Duration) Notes Start Date End Date Status Sertraline HCl 100 MG 1 tablet Orally On ce a day; Duration: 90 days Active traMADol HCl 50 MG 1 tablet as needed Orally Four times a day 10/18/2024 Active Cyclobenzaprine HCl 5 MG 1 tablet at bed time as needed Orally Two times a day 12/08/2023 Not-Taking cloNIDine HCl 0.1 MG 1 tablet Orally Renetta ry 8 Hours As Needed Not-Taking Rosuvastatin Calcium 20 mg TAKE ONE TABL ET BY MOUTH EVERY DAY Active Eliquis 5 mg TAKE ONE TABLET [...] 30 day(s) 03/05/2021 Active Sertraline HCl 100 mg TAKE ONE TABLET BY MOUTH EVERY DAY; Duration: 90 Active dexAMETHasone 4 MG 1 tablet Orally Two times a day; Duration: 5 days 10/11/2024 Active Encounters Encounter Location Date Provider Diagnosis [facility] [address] [place], [place] [id number] 10/18/2024 Yariel Terrell Left hip pain M25.55 2 Assessments Encounter Date Diagnosis (ICD Code) Assessment Notes Treatment Notes Treatment Clinical Notes Section Notes 10/18/2024 Left hip pain (ICD-10 - M25.552) Plan Of Treatment Medication Medication Name Sig Start Date Stop Date Notes traMADol HCl 50 MG 1 tablet as needed O rally Four times a day 10/18/2024 Pending Test Test Name Order Date G-D-Rraoadnb Protein (CRP) 10/18/2024 Progress Notes * Samra MORTENSENDOB:1960 ( 64 yo F)Acc No.[id number]:10/18/2024 Patient: Samra CHIN Provider: Cathy Lee M.D. :1960 A ge:64 Y S ex:Female Date:10/18/2024 Address:[address] [place] [address], [id number] Subjective: * Chief Complaints: * 1 . Hip pain. * HPI: H ip/Thigh: 64 year old female presents with c/o hip pain. * ROS: D ERMATOLOGY: no R cesar. n o H juan. G ASTROENTEROLOGY: no N ausea. n o V omiting. n o D iarrhea.? U ROLOGY: no D ifficulty urinating. n o B lood in urine. * Medical History: A trial fibrillation, Mitral valve prolapse, Migraine headache, Irritable bowel syndrome. * Medications: T aking dexAMETHasone 4 MG Tablet 1 tablet Orally Two times a day , Taking Sertraline HCl 100 mg Tablet TAKE ONE TABLET BY MOUTH EVERY DAY , Taking Omeprazole 40 MG Capsule Delayed [...] ONE TABLET BY MOUTH EVERY DAY , Not-Taking cloNIDine HCl 0.1 MG Tablet 1 tablet Orally Every 8 Hours As Needed , Not-Taking Cyclobenzaprine HCl 5 MG Tablet 1 tablet at bedtime as needed Orally Two times a day , Medication List reviewed and reconciled with the patient * Allergies: N .K.D.A. Objective: * Vitals: Assessment: * Assessment: 1. L eft hip pain - M25.552 (Primary) Plan: * Treatment: Value Reference Range A ntinuclear Antibodies (NILA) Result Note SEE COMMENT - * A ntinuclear Antibodies (NILA) Screen, Reflex NILA 9 Panel Negative Negative - * C CP Antibodies <0.5 <0.5-3.0 - U/mL * C -Reactive Protein (CRP) 0.33 <0.50 - mg/dL * E rythrocyte Sedimentation Rate (ESR), Automated 2 <31 - mm/hr * R heumatoid Factor <10 <14.1 - IU/mL * Yariel Lee 10/21/2024 1 0:21:03 AM > Spoke to pt. ?LAB: P-Uric Acid (Collection Date & Time - 10/18/2024 08:26 AM)?Normal* Value Reference Range U massiel Acid 4.9 2.4-7.0 - mg/dL * Yariel Lee 10/21/2024 1 0:21:03 AM > Spoke to pt. ?LAB: CBC Venipuncture (in house) (Collection Date & Time - 10/18/2024)?wbc 12.8* Value Reference Range w bc 12.8 3.5 - 10 * l ymph 20.8 15 - 50 * m id 5.7 2 - 15 * g ran 73.5 35 - 80 * r bc 4.69 3.5 - 5.5 * h gb 13.9 11.5 - 16.5 * h ct 41.7 35 - 55 * m cv 88.9 75 - 100 * m ch 29.7 25 - 35 * m chc 33.4 31 - 38 * p latlet 314 100 - 400 * Brianda Gibbs 10/18/2024 09:38 :39 AM > Yariel Lee 10/21/2024 10:21:03 AM > Spoke to pt. * Procedure Codes: 8 5025 CBC WITH AUTO DIFF * Images: Billing Information: * Visit Code: * Procedure Codes: 98639 CBC WITH AUTO DIFF. * Electronic signature of Hillary Lee MD on 06/01/2025 at 11:23 AM EST Sign off status: Pending * Provider: Cathy Lee M.D. Date: 0 10/18/2024 Generated for Anjum chopra/Roseann/eTransmitting on: 1 08/02/2024 11:23 AM EST History and Physical Notes * HPI (History of Present Illness) Category Sub-Category Detail Notes Category Not es Hip/Thigh hip pain
--- NOTE | 2025-06-01 09:51 | MM_ITS ---
PROCEDURE INFORMATION: Exam: MG Bilateral Screening 3D Mammography Exam date and time: 06/01/2025 9:52 AM Age: 64 years old Clinical indication: Screening examination TECHNIQUE: Imaging protocol: Bilateral Screening tomosynthesis and 2D mammography including computer-aided detection (CAD) when performed. COMPARISON: 1. MG MM DIG MAMM DX UNILAT RT CAD 02/11/2022 2:39 PM 2. MG MM DIG MAMM DX UNILAT RT CAD 06/13/2021 3:15 PM FINDINGS: MAMMOGRAPHY: Breast composition: The breasts are almost entirely fatty. Mass: None. Architectural distortion: None. Calcifications: No suspicious calcifications. Asymmetric density: None. Skin thickening: None. Axillary adenopathy: None. IMPRESSION: No mammographic evidence of malignancy. Annual screening is recommended unless otherwise clinically indicated. ASSESSMENT: BI-RADS Category 1: Negative.
--- OUTSIDE RECORDS SUMMARY | 2025-06-01 11:23 | XMS_ITS | Patient Health Record ---
[facility] Address [address], [place] [id number] Care Team Providers [facility] Name Role Phone Yariel Lee Primary Care Provider Allergies No Known Allergies Results Component Value Reference Range Notes P-Uric Acid Reviewed date:10/21/2024 10:21:15 AM Interpretation:Normal Performing Lab: Notes/Report: CLIA: [id number] Harjeet Kramer MD, Senior Supplier Quality Engineer [address] [place] [address] , [place] [address] Test performed by [facility] Uric Acid 4.9 2.4-7.0 mg/dL P-Arthritis Panel, [place] Reviewed date:10/21/2024 10:21:15 AM Interpretation:Normal Performing Lab: Notes/Report: Test performed by [facility] [address] [place] [address] , [place] [address] Harjeet Kramer MD, Senior Supplier Quality Engineer CLIA: [id number] Erythrocyte Sedimentation Rate (ESR), Automated 2 <31 mm/hr Rheumatoid Factor <10 <14.1 IU/mL C-Reactive Protein (CRP) 0.33 <0.50 mg/dL Antinuclear Antibodies (NILA) Screen, Reflex NILA 9 Panel Negative Negative This test is performed by Multiplex Bead Immunoassay methodology. Antinuclear Antibodies (NILA) Result Note SEE COMMENT For positive Autoantibodies, please refer to the interpretive chart here: [email or web address] CCP Antibodies <0.5 <0.5-3.0 U/mL CBC Venipuncture (in house) Reviewed date:10/21/2024 10:21:15 [...] - 38 platlet 314 100 - 400 MRI : Hip, left, without con trast Reviewed date:10/25/2024 04:47:43 PM Interpretation: Performing Lab: Notes/Report: P-Vitamin D 25-Hydroxy Reviewed date:10/11/2024 03:14:51 PM Interpretation:36.3 Performing Lab: Notes/Report: CLIA: [id number] Harjeet Kramer MD, Senior Supplier Quality Engineer [address] [place] [address] , [place] [address] Test performed by [facility] Vitamin D 25-Hydroxy 36.3 30.0-100.0 ng/mL Interpretation of Vitamin D 25 OH: < 20 ng/mL - Deficiency 20 - 29 ng/mL - Insufficiency 30 - 100 ng/mL - Sufficiency > 100 ng/mL - Super-therapeutic- toxicity may occur above this level. Clinical correlation required. P-Lipid Panel Reviewed date:10/11/2024 03:16:31 PM Interpretation:Normal Performing Lab: Notes/Report: Test performed by [facility] [address] [place] [address] , [place] [address] Harjeet Kramer MD, Senior Supplier Quality Engineer CLIA: [id number] Cholesterol 128 <200 mg/dL Triglycerides 131 <150 [...] Results: 60 Units: mg/dL % Change: -65% P-Comprehensive Metabolic Pa demetrice (CMP) Reviewed date:10/11/2024 03:15:15 PM Interpretation:Normal Performing Lab: Notes/Report: Test performed by [facility] , [address], [place] [address] Harjeet Kramer MD, Senior Supplier Quality Engineer CLIA: [id number] Sodium 142 135-145 mmol/L Potassium 4.4 3.5-5.3 [...] 0.3 <0.2-1.2 mg/dL A/G Ratio 1.6 1.1-2.5 CBC Fingerstick (in house) Reviewed date:10/11/2024 03:14:32 [...] - 38 plat 209 100 - 400 X ray : Hip, left Reviewed date:10/11/2024 03:14:40 PM Interpretation:Negative Performing Lab: Notes/Report: Negative P-Insulin Total Random Reviewed date:10/11/2024 03:15:37 PM Interpretation:Normal Performing Lab: Notes/Report: Test performed by [facility] [employer] [address] [place] [address] , [address], [place] [address] Harjeet Kramer MD, Senior Supplier Quality Engineer CLIA: [id number] Insulin Total Random 15.9 2.6-24.9 uIU/mL Reason For Referral No Information Medications Medication SIG (Take, Route, Frequency, Duration) Notes Start Date End Date Status Meloxicam 15 MG 1 tablet Orally Once a day; Duration: 30 days 11/09/2024 Active traMADol HCl 50 MG 1 tablet as needed Orally Four times a day 11/09/2024 Active Sertraline HCl 100 mg 1 tablet orally on ce a day; Duration: 90 days Active Furosemide 20 MG 1 tablet Orally Once a day; Duration: 30 day(s) 05/10/2025 Active Eliquis 5 mg TAKE ONE TABLET BY MOUTH TWICE DAILY; Duration: 90 Active CPAP SUPPLIES DIRECTED 04/18/2022 Act rodrigo Omeprazole 40 MG 1 cap(s) orally once a day; Duration: 30 day(s) 03/05/2021 Active dexAMETHasone 4 MG 1 tablet Orally Two times a day; Duration: 5 days 10/11/2024 Active Cyclobenzaprine HCl 5 MG 1 tablet at bed time as needed Orally Two times a day 12/08/2023 Not-Taking Rosuvastatin Calcium 20 mg 1 tablet oral ly once a day; Duration: 90 days Active cloNIDine HCl 0.1 MG 1 tablet Orally Renetta ry 8 Hours As Needed Not-Taking Metoprolol Succinate ER 100 mg TAKE ONE TABLET BY MOUTH EVERY DAY; Duration: 90 Active Irbesartan 300 mg 1 tablet orally once a day; Duration: 90 days Active Immunizations Vaccine Route Administration Date Status Comme nts xFluzone (6mos and older)-trivalent IM Intramuscular 04/08/2012 Administered xFluzone (6mos and older)-trivalent IM Intramuscular 04/12/2014 Administered ppd ID Intradermal 10/02/2010 Administered PNEUMOVAX 23 VACCINE IM Intramuscular 06/14/2020 Administe red Hepatitis A (adult) IM Intramuscular 06/04/2018 Administer ed Fluzone Quad (6months&older) IM Intramuscular 03/23/2020 Administered Hepatitis B (20 and more) IM Intramuscular 12/20/2008 Admi nistered ppd ID Intradermal 01/26/2018 Pending ppd TD Transdermal 12/09/2016 Administered ppd ID Intradermal 11/20/2015 Administered ppd ID Intradermal 11/14/2014 Administered ppd IM Intramuscular 11/10/2013 Administered ppd ID Intradermal 10/12/2012 Administered ppd TD Transdermal 10/02/2009 Administered Shingrix IM Intramuscular 07/31/2020 Administered tuberculin (ppd) TD Transdermal 09/28/2008 Administered tuberculin (ppd) ID Intradermal 07/21/2006 Administered xFlu shot-36 months and older IM Intramuscular 03/26/2011 Administered xFlu shot-36 months and older IM Intramuscular 02/10/2009 Administered xFlu shot-36 months and older IM Intramuscular 04/21/2008 Administered xFlu shot-36 months and older IM Intramuscular 04/02/2007 Administered xFlu shot-36 months and older IM Intramuscular 04/15/2006 Administered xFlu shot-36 months and older IM Intramuscular 04/17/2005 Administered xFluzone (6mos and older)-trivalent IM Intramuscular 07/02/2013 Administered xFluzone (6mos and older)-trivalent IM Intramuscular 05/15/2010 Administered COVID 19 Juwan Unknown 07/30/2021 Administered Hepatitis A (adult) IM Intramuscular 12/07/2018 Administer ed COVID 19 Juwan Unknown 08/23/2020 Administered Zostavax IM Intramuscular 03/23/2020 Administered Fluzone PF Quad (6-35 months) IM Intramuscular 05/14/2021 Administered tuberculin (ppd) ID Intradermal 09/21/2007 Administered Hepatitis B (20 and more) IM Intramuscular 08/04/2008 Admi nistered Hepatitis B (20 and more) IM Intramuscular 09/05/2008 Admi nistered Problems Problem Type SNOMED Code ICD Code Onset Dates Problem Status W/U Status Risk Notes Problem Depression (923298673) DEPRESSION (296.00) Active confirmed Problem Gastroesophageal reflux disease (disorder) (912630930) GERD [Gastroesophageal reflux disease] (530.81) Active confirmed Problem Essential hypertension (23000842) HTN (hypertension), benign (I10) Active confirmed Problem Vitamin D deficiency (50053130) Vitamin D deficiency (E55.9) Active confirmed Problem Abnormal mammogram (165081916) Abnormal mammogram (R92.8) Active confirmed Problem Abnormal findings on diagnostic imaging of breast (015867056) Abnormal mammogram of both breasts (R92.8) Active confirmed Problem Localized edema (4092597) Localized edema (R60.0) Active confirmed Problem Gastroesophageal reflux disease without esophagitis (535774567) Gastroesophageal reflux disease without esophagitis (K21.9) Active confirmed Problem Iron deficiency anemia due to chronic blood loss (534020097) Iron deficiency anemia due to chronic blood loss (D50.0) Active confirmed Problem Atrial fibrillation (50387614) Atrial fibrillation, unspecified type (I48.91) Active confirmed Problem Pure hypercholesterolemia (561803119) Pure hypercholesterolemia (E78.00) Active confirmed Problem Cough (finding) (02783002) Cough, unspecified type (R05.9) Active confirmed Problem Postprandial hypoglycemia (335995703) 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 Vital Signs Heart Rate 56 /min 10/04/2024 Blood pressure diastolic 78 mm Hg 10/04/2024 Height 62.50 in 10/04/2024 Blood pressure systolic 120 mm Hg 10/04/2024 Weight 000 lbs 10/04/2024 Encounters Encounter Location Date Provider Diagnosis [facility] [address] [place], [place] [id number] 10/04/2024 Yariel Norton Postprandial hypogly cemia E16.1 ; Pure hypercholesterolemia E78.00 and Vitamin D deficiency E55.9 [facility] [address] [place], [place] [id number] 10/05/2024 Yariel Norton Vitamin D deficiency E55.9 ; Pure hypercholesterolemia E78.00 ; Iron deficiency anemia due to chronic blood loss D50.0 ; HTN (hypertension), benign I10 ; Postprandial hypoglycemia E16.1 and Left hip pain M25.552 [facility] [address] [place], [place] [id number] 10/11/2024 Yariel Norton Left hip pain M25.55 2 [facility] [address] [place], [place] [id number] 10/18/2024 Yariel Norton Left hip pain M25.55 2 [facility] [address] [place] [id number] 10/11/2024 Yariel Norton [facility] [address] [place], [place] [id number] 10/20/2024 Yariel Norton [facility] [address] [place], [place] [id number] 11/09/2024 Yariel Norton Left hip pain M25.55 2 [facility] [address] [place], [place] [id number] 03/22/2025 Yariel Norton [facility] [address] [place], [place] [id number] 05/10/2025 Yariel Norton Assessments Encounter Date Diagnosis (ICD Code) Assessment Notes Treatment Notes Treatment Clinical Notes Section Notes 10/11/2024 Left hip pain (ICD-1 0 - M25.552) 10/18/2024 Left hip pain (ICD-1 0 - M25.552) 11/09/2024 Left hip pain (ICD-1 0 - M25.552) 10/05/2024 Pure hypercholesterolemia (ICD-10 - E78.00) 10/04/2024 Pure hypercholesterolemia (ICD-10 - E78.00) 10/04/2024 Postprandial hypoglycemia (ICD-10 - E16.1) 10/05/2024 Vitamin D deficiency (ICD-10 - E55.9) 10/04/2024 Vitamin D deficiency (ICD-10 - E55.9) 10/05/2024 Iron deficiency anem ia due to chronic blood loss (ICD-10 - D50.0) 10/05/2024 HTN (hypertension), benign (ICD-10 - I10) 10/05/2024 Postprandial hypoglycemia (ICD-10 - E16.1) 10/05/2024 Left hip pain (ICD-1 0 - M25.552) 10/04/2024 Other Patient to have the following fasting labs in the morning: CBC, Insulin level, CMP, Lipid & Vit D Plan Of Treatment Pending Test Test Name Order Date Mammogram, Bilateral Diagnostic 04/29/20 25 W-J-Ogaglqgf Protein (CRP) 10/18/2024 Insurance Providers Payer Name Payer Address Payer Phone Subscriber Number Group Number Insured Name Patient Relationship to Insured Coverage Start Date Coverage End Date [facility] [id number] [place] [address] [id number] Samra Richmond Self - patient is the insured Medications Administered Medication Instructions Date of Administration Dosage Notes Dexamethasone 03/24/2006 8 mg Dexamethasone 07/17/2012 Dexamethasone 07/16/2012 4 mg Dexamethasone 07/15/2012 Medical (General) History Medical History History ICD Code Atrial fibrillation mitral valve prolapse migraine headache irritable bowel syndrome Surgical History Surgery Date(Month/Year) gallbladder Hiatal Hernia repai 2020 Hospitalization History Reason Date(Month/Year) Hiatal Hernia Repair - [facility] 2020
--- OUTSIDE RECORDS SUMMARY | 2025-06-01 11:23 | XMS_ITS | Clinical Summary ---
[facility] Address [address] [place] [address] Care Team Providers Care Cream Beater Name Role Phone Yariel Lee MD Primary Care Provider Social History Tobacco Use Types Packs/Day Years Used Date Smoking Tobacco: Never Assessed Abuse Screen Answer Date Recorded Unsafe at Home or Work/School Not on file Feels Threatened by Someone? Not on file 02/2023 Does Anyone Keep You from Co ntacting Others or Doint Things Outside the Home? Not on file 03/24/2023 Physical Sign of Abuse Present Not on file 1 Housing Stability Answer Date Recorded Current Living Arrangements Not on file 02/2023 Potentially Unsafe Housing Conditions Not on olivier e 03/24/2023 Family and Community Support Answer Darin e Recorded Help with Day-to-Day Activities Not on file 03/24/2023 Lonely or Isolated Not on file 03/24/2023 Employment Answer Date Recorded Do you want help finding or keeping work or a homero b? Not on file 03/24/2023 Disabilities Answer Date Recorded Concentrating, Remembering, or Making Decisions Difficulty Not on file 03/24/2023 Doing Errands Independently Difficulty Not on fi le 03/24/2023 Education Answer Date Recorded Help with school or training? Not on file Preferred Language Not on file 03/24/2023 Comments Unknown Sex and Gender Information Value Date Recorded Sex Assigned at Not on file Legal Sex Female 10:21 AM EDT Gender Identity Not on file Sexual Orientation Not on file Plan of Treatment Health Maintenance Due Date Last Done Comments ANNUAL PHYSICAL 1960 Annual Gynecologic Pelvic and Breast Exam 1960 HEPATITIS C SCREENING 1960 TDAP/TD VACCINES (1 - Tdap) 1979 MAMMOGRAM 2000 COLOGUARD 2005 COLON CANCER SCREENING 5 YEAR SIGMOIDOSCOPY 2005 COLONOSCOPY [address] SCREENING [address] COLONOGRAPHY 2005 FECAL OCCULT BLOOD TEST 2005 FIT Testing (1 year) 2005 Pneumococcal Vaccine 50+ (1 of 1 - PCV) 2010 ZOSTER VACCINE (1 of 2) 2010 INFLUENZA VACCINE 01/14/2025 Insurance [employer] Care Teams Cream Beater Relationship Specialty Start Date End Date Yariel Lee MD [address] [facility] [address] [facility] [place] [address] PCP - General Family Medicine 05/02/22
== END 2025-06-01 23:59 | disposition home or self-care (01) ==
LOC: RAD 09:48
PROVIDERS: PCP Family Medicine; Visit Provider Family Medicine
DX: Z12.31 Encounter for screening mammogram for malignant neoplasm of breast (principal)
CPT/HCPCS: 77063; 77067